=== PATIENT | male | born 1960 | race Caucasian/White ===

== ENCOUNTER 2017-10-20 10:52 | Emergency (ER) | payer BC ==
--- NOTE | 2017-10-20 12:18 | ER Document Report ---
ED Medical Screen (RME) - General Chief Complaint: General Weakness Stated Complaint: WEAKNESS Time Seen by Provider: 10/20/17 12:16 Notes: Patient states for 3 weeks he has had right hand weakness and numbness. He states is also had trouble articulating when he tries to speak. He denies any other type of weakness numbness or changes. No pain. No significant past medical history. TRAVEL OUTSIDE OF THE [place] IN LAST 30 DAYS: No - Related Data Allergies/Adverse Reactions: No Known Allergies Allergy (Verified 10/20/17 12:03) Past Medical History - Social History Chew tobacco use (# tins/day): No Frequency of alcohol use: Occasional Drug Abuse: None - Past Medical History Cardiac Medical History: Reports: Hx Hypertension Denies: Hx Coronary Artery Disease, Hx Heart Attack Pulmonary Medical History: Denies: Hx Asthma, Hx Bronchitis, Hx COPD, Hx Pneumonia Neurological Medical History: Denies: Hx Cerebrovascular Accident, Hx Seizures Renal/ Medical History: Denies: Hx Peritoneal Dialysis Musculoskeltal Medical History: Denies Hx Arthritis - Immunizations Hx Diphtheria, Pertussis, Tetanus Vaccination: Yes Physical Exam - Vital signs Vitals: Temp Pulse Resp BP Pulse Ox 98.2 F 57 L 18 182/82 H 96 10/20/17 11:00 10/20/17 11:00 10/20/17 11:00 10/20/17 11:00 10/20/17 11:00 Course - Vital Signs Vital signs: Temp Pulse Resp BP Pulse Ox 98.2 F 57 L 18 182/82 H 96 10/20/17 11:00 10/20/17 11:00 10/20/17 11:00 10/20/17 11:00 10/20/17 11:00
[2017-10-20 12:53] LABS: ABSOLUTE EOSINOPHILS # (AUTO) 0.1 10^3/uL (0.0-0.6); ABSOLUTE LYMPHOCYTES (AUTO) 1.1 10^3/uL (0.5-4.7); ABSOLUTE MONOCYTES (AUTO) 0.8 10^3/uL (0.1-1.4); ABSOLUTE NEUT (AUTO) 8.3 10^3/uL (1.7-8.2); BASOPHILS % (AUTO) 0.2 % (0-2); EOSINOPHILS % (AUTO) 1.3 % (0-6); HEMATOCRIT 49.4 % (37.9-51.0); HEMOGLOBIN 16.8 g/dL (13.5-17.0); LYMPHOCYTES % (AUTO) 10.5 % (13-45); MEAN CORPUSCULAR HEMOGLOBIN 31.6 pg (27.0-33.4); MEAN CORPUSCULAR VOLUME 93 fl (80-97); MONOCYTES % (AUTO) 7.7 % (3-13); PLATELET COUNT 211 10^3/uL (150-450); RED BLOOD COUNT 5.31 10^6/uL (4.35-5.55); RED CELL DISTRIBUTION WIDTH 13.7 % (11.5-14.0); SEGMENTED NEUTROPHILS % (AUTO) 80.3 % (42-78); TOTAL CELLS COUNTED % (AUTO) 100 %; WHITE BLOOD COUNT 10.4 10^3/uL (4.0-10.5)
[2017-10-20 12:57] LABS: APPEARANCE,URINE CLEAR; BILIRUBIN,URINE NEGATIVE (NEGATIVE); COLOR,URINE YELLOW; GLUCOSE, URINE NEGATIVE (NEGATIVE); KETONES,URINE NEGATIVE (NEGATIVE); LEUKOCYTE ESTERASE,URINE TRACE (NEGATIVE); NITRITE,URINE NEGATIVE (NEGATIVE); PROTEIN,URINE 30 mg/dL (NEGATIVE); URINE SPECIFIC GRAVITY 1.009; UROBILINOGEN,URINE NEGATIVE mg/dL (<2.0)
--- NOTE | 2017-10-20 13:05 | RADIOLOGY REPORT (SQ) ---
EXAM DESCRIPTION: CT HEAD WITHOUT COMPLETED DATE/TIME: 10/20/2017 12:44 pm REASON FOR STUDY: right hand weakness COMPARISON: None. TECHNIQUE: Axial images acquired through the brain without intravenous contrast. Images reviewed wi th bone, brain and subdural windows. Images stored on PACS. All CT scanners at this facility use dose modulation, iterative reconstruction, and/or weight based d osing when appropriate to reduce radiation dose to as low as reasonably achievable (ALARA). [facility]: Dose Right [facility]: CareDose [facility]: Dose Right [facility]: Teradose 4D [facility]: Smart [employer] RADIATION DOSE: CT Rad equipment meets quality standard of care and radiation dose reduction techniq ues were employed. CTDIvol: 64.6 mGy. DLP: 1292 mGy-cm. mGy. LIMITATIONS: None. FINDINGS: VENTRICLES: Normal size and contour. CEREBRUM: No masses. No hemorrhage. No midline shift. There is an ovoid area of relative decreased density in the basal ganglia on the left extending superiorly into the left periventricular white ma tter which could represent an area of recent infarction. There is a relative low density area in the left parietal region over the convexity which could also represent an area of recent infarction. Th ere are relative low density areas in the left posterior temporal lobe which could also represent are as of recent infarction. Clinical correlation is recommended. If further workup is deemed clinicall y warranted I would recommend MRI CEREBELLUM: No masses. No hemorrhage. No alteration of density. No evidence for acute infarction. EXTRAAXIAL SPACES: No fluid collections. No masses. ORBITS AND GLOBE: No intra- or extraconal masses. Normal contour of globe without masses. CALVARIUM: No fracture. PARANASAL SINUSES: Mucosal thickening is identified in the maxillary antra and a couple of the ethmoi aric sinuses SOFT TISSUES: No mass or hematoma. OTHER: No other significant finding. IMPRESSION: Multiple areas of relative decreased density involving the basal ganglia and periventric ular white matter on the left, the left parietal lobe, in the left temporal lobe as noted above which could represent areas of recent infarction. Clinical correlation is recommended. If further workup is deemed clinically warranted I would recommend MRI. Other findings as noted above. EVIDENCE OF ACUTE STROKE: NO. COMMENT: Quality ID # [id number]: Final reports with documentation of one or more dose reduction techniques (e.g., Automated exposure control, adjustment of the mA and/or kV according to patient size, use of iterative reconstruction technique) TECHNICAL DOCUMENTATION: JOB ID: [id number] [employer]- All Rights Reserved Reading location - IP/workstation name: [email or web address]
[2017-10-20 13:08] LABS: ALANINE AMINOTRANSFERASE 68 U/L (21-72); ALBUMIN 4.3 g/dL (3.5-5.0); ALKALINE PHOSPHATASE 110 U/L (38-126); ANION GAP 9 (5-19); ASPARTATE AMINO TRANSFERASE 53 U/L (17-59); BILIRUBIN,DIRECT 0.3 mg/dL (0.0-0.4); BLOOD UREA NITROGEN 7 mg/dL (7-20); CALCIUM 9.7 mg/dL (8.4-10.2); CARBON DIOXIDE 29 mmol/L (22-30); CHLORIDE 100 mmol/L (98-107); GLUCOSE 81 mg/dL (75-110); POTASSIUM 4.3 mmol/L (3.6-5.0); SODIUM 138.3 mmol/L (137-145); TOTAL PROTEIN 6.8 g/dL (6.3-8.2)
[2017-10-20 13:11] LABS: ALCOHOL < 10 mg/dL (NONE DETECTED)
[2017-10-20 13:12] LABS: URINE AMPHETAMINES SCREEN NEGATIVE; URINE BARBITURATES SCREEN NEGATIVE; URINE BENZODIAZEPINES SCREEN NEGATIVE; URINE COCAINE SCREEN NEGATIVE; URINE MARIJUANA (THC) SCREEN UNCONFIRMED POSITIVE; URINE METHADONE SCREEN NEGATIVE; URINE PHENCYCLIDINE SCREEN NEGATIVE
--- NOTE | 2017-10-20 16:23 | ER Document Report ---
ED General - General Chief Complaint: General Weakness Stated Complaint: WEAKNESS Time Seen by Provider: 10/20/17 12:16 TRAVEL OUTSIDE OF THE [place] IN LAST 30 DAYS: No - HPI Notes: Patient is a 57-year-old male with a history of hypertension who presents to the ED complaining of right hand tingling and occasional headache 3 weeks. Patient states that on rare occasions he will have issues articulating his words. Patient states that he would like evaluation for a stroke. He is otherwise been eating and drinking without any difficulties. He is urinating normally and having normal bowel movements. Patient states that he did notice some right hand weakness once, but that has since resolved. Patient does admit to smoking but denies IV drug use. He denies any drug allergies. Patient has not had any other recent illness. Denies any current headache, fever, head injury, neck pain, changes in vision/mentation/hearing, URI, sore throat, chest pain, palpitations, syncope, cough, shortness of breath, wheeze, dyspnea, abdominal pain, nausea/vomiting/diarrhea, urinary retention, dysuria, hematuria , loss of control of bowel or bladder, saddle anesthesia, muscle paralysis, or rash. [facility] - Related Data Allergies/Adverse Reactions: No Known Allergies Allergy (Verified 10/20/17 12:03) Past Medical History - Social History Smoking Status: Current Every Day Smoker Chew tobacco use (# tins/day): No Frequency of alcohol use: Occasional Drug Abuse: None Family History: Reviewed & Not Pertinent Patient has suicidal ideation: No Patient has homicidal ideation: No - Past Medical History Cardiac Medical History: Reports: Hx Hypertension Denies: Hx Coronary Artery Disease, Hx Heart Attack Pulmonary Medical History: Denies: Hx Asthma, Hx Bronchitis, Hx COPD, Hx Pneumonia Neurological Medical History: Denies: Hx Cerebrovascular Accident, Hx Seizures Renal/ Medical History: Denies: Hx Peritoneal Dialysis Musculoskeltal Medical History: Denies Hx Arthritis - Immunizations Hx Diphtheria, Pertussis, Tetanus Vaccination: Yes Review of Systems - Review of Systems -: Yes All other systems reviewed and negative Physical Exam - Vital signs Vitals: Temp Pulse Resp BP Pulse Ox 98.2 F 57 L 18 182/82 H 96 10/20/17 11:00 10/20/17 11:00 10/20/17 11:00 10/20/17 11:00 10/20/17 11:00 - Notes Notes: PHYSICAL EXAMINATION: GENERAL: Well-appearing, well-nourished and in no acute distress. A&Ox4. Answers questions appropriately. HEAD: Atraumatic, normocephalic. Non-tender. No lee sign EYES: Pupils equal round and reactive to light, extraocular movements intact, sclera anicteric, conjunctiva are normal. No raccoon eyes/entrapment ENT: EAC clear b/l. TM's intact b/l without erythema, fluid, or perforation. Nares patent and without discharge. oropharynx clear without exudates. No tonsilar hypertrophy or erythema. Moist mucous membranes. No sinus tenderness. No hemotympanum/CSF discharge. NECK: Normal range of motion, supple without lymphadenopathy. No rigidity. No midline tenderness. Spurling negative. LUNGS: Breath sounds clear to auscultation bilaterally and equal. No wheezes rales or rhonchi. HEART: Regular rate and rhythm without murmurs, rubs, gallops. ABDOMEN: Soft, nontender, nondistended abdomen. No guarding, no rebound. No masses appreciated. Normal bowel sounds present. No CVA tenderness bilaterally. Musculoskeletal: Ext b/l: FROM to passive/active. Strength 5+/5. No deficits noted. No bony tenderness of extremities. Back: FROM to passive/active. Strength 5+/5. No vertebral point tenderness, stepoffs, or deformities. No other bony tenderness or ecchymosis. SLR negative b/l. Extremities: No cyanosis, clubbing, or edema b/l. Peripheral pulses 2+. Capillary refill less than 2 seconds. NEUROLOGICAL: NIH 0. GCS 15. MMSE intact. Cranial nerves grossly intact. Normal speech, normal gait. Normal sensory, motor exams. Reflexes 2+ b/l. MEREDITH' s negative. Pronator drift negative. Heel/león, finger/nose wnl. Walking on heels/toes and heel to toe wnl. PSYCH: Normal mood, normal affect. SKIN: Warm, Dry, normal turgor, no rashes or lesions noted. Course - Re-evaluation Re-evalutation: 10/20/17 16:24 Patient is an afebrile, well-hydrated, 57-year-old male who presents to the ED with tingling in his posterior right hand unspecified and abnormal CT findings questionable for acute CVA. Vitals are acceptable. PE is otherwise unremarkable for any focal neurological deficits. NIH 0, GCS 15, MMSE intact, cranial nerves grossly intact. There is no physical exam finding to correlate with an acute infarct at this time. Radiologist did recommend an MRI be performed for further evaluation and management. I did review case with Dr. El and the patient. The patient would like to have the MRI performed through his PCM so he can get out of the ED. Dr. El and myself are okay with this decision based on his unremarkable PE today. Pt has [employer] and his PCM is in [place]. Pt aware of the risks/benefits of not having the MRI performed and he agrees that he will call tomorrow to schedule an appointment with his PCM. Low suspicion for any acute glaucoma, temporal arteritis, meningitis, intracranial hemorrhage, acute ischemic stroke, or fracture at this time. Patient is aware that his condition can change from initial presentation and that he needs to monitor symptoms closely for any acute changes. Recommend conservative measures for symptoms with close monitoring of his blood pressure. Recheck with your PCM this week if able. Return to the ED with any worsening/ concerning symptoms otherwise as reviewed discharge. Patient is in agreement. - Vital Signs Vital signs: Temp Pulse Resp BP Pulse Ox 98.2 F 57 L 18 182/82 H 96 10/20/17 11:00 10/20/17 11:00 10/20/17 11:00 10/20/17 11:00 10/20/17 11:00 - Laboratory Result Diagrams: 10/20/17 12:20 10/20/17 12:20 Laboratory results interpreted by me: 10/20/17 10/20/17 12:20 12:20 Seg Neutrophils % 80.3 H Lymphocytes % 10.5 L Absolute Neutrophils 8.3 H Urine Protein 30 H Ur Leukocyte Esterase TRACE H Discharge - Discharge Clinical Impression: Abnormal CT scan of head Hand tingling Qualifiers: Laterality: right Qualified Code(s): R20.2 - Paresthesia of skin Condition: Stable Disposition: HOME, SELF-CARE Additional Instructions: Maintain adequate fluid and food intake Take home medications as directed Low sodium/fat diet Monitor blood pressure daily and keep a log Monitor symptoms for any acute changes Recheck with your PCM in 3-5 days You will need an MRI for further evaluation and management (your CT results were given to you) At this time you do not appear to be having an acute stroke and you will need strict follow up with your PCM with return if worsening symptoms Return to the ED with any worsening symptoms and/or development of fever, headache, changes in behavior/mentation/speech/vision/hearing, chest pain, palpitations, syncope, shortness of breath, trouble breathing, abdominal pain, n /v/d, blood in stool/urine, loss of control of bowel/bladder, urinary retention , muscle weakness/paralysis, numbness/tingling, or other worsening symptoms that are concerning to you. Forms: Elevated Blood Pressure, Smoking Cessation Education Referrals: Bob Primary Care Provider [Other] - Follow up in 3-5 days
[2017-10-20 17:30] VITALS: BP 174/94
== END 2017-10-20 17:25 | disposition home or self-care (01) ==
LOC: ER 10:52
DX: R20.2 Paresthesia of skin (principal); R93.0 Abnormal findings on diagnostic imaging of skull and head, not elsewhere classified; R51 Headache; R29.818 Other symptoms and signs involving the nervous system; I10 Essential (primary) hypertension; F17.200 Nicotine dependence, unspecified, uncomplicated
CPT/HCPCS: 36415; 70450; 80053; 80307; 81001; 85025; 99285

== ENCOUNTER 2017-10-21 20:19 | Emergency (ER) | payer BC ==
--- NOTE | 2017-10-21 20:33 | ER Document Report ---
ED Medical Screen (RME) - General Chief Complaint: S/S of Possible Stroke Stated Complaint: RT SIDE WEAKNESS Time Seen by Provider: 10/21/17 20:31 Mode of Arrival: Wheelchair Information source: Patient, Relative, [facility] Records Notes: 57-year-old male who was seen here yesterday with questionable CVA which was to leave presents with complaints of sudden right-sided deficits. Patient notes right arm weakness I have greeted and performed a rapid initial assessment of this patient. A comprehensive ED assessment and evaluation of the patient, analysis of test results and completion of the medical decision making process will be conducted by additional ED providers. PHYSICAL EXAMINATION: GENERAL: Well-appearing, well-nourished and in no acute distress. HEAD: Atraumatic, normocephalic. EYES: Pupils equal round extraocular movements intact, conjunctiva are normal. ENT: Nares patent NECK: Normal range of motion LUNGS: No respiratory distress Musculoskeletal: Hesitancy with range of motion of the right upper extremity NEUROLOGICAL: Right arm weakness PSYCH: Normal mood, normal affect. SKIN: Warm, Dry, normal turgor, no rashes or lesions noted. TRAVEL OUTSIDE OF THE [place] IN LAST 30 DAYS: No - Related Data Allergies/Adverse Reactions: No Known Allergies Allergy (Verified 10/20/17 12:03) Past Medical History - Past Medical History Cardiac Medical History: Reports: Hx Hypertension Denies: Hx Coronary Artery Disease, Hx Heart Attack Pulmonary Medical History: Denies: Hx Asthma, Hx Bronchitis, Hx COPD, Hx Pneumonia Neurological Medical History: Denies: Hx Cerebrovascular Accident, Hx Seizures Renal/ Medical History: Denies: Hx Peritoneal Dialysis Musculoskeltal Medical History: Denies Hx Arthritis - Immunizations Hx Diphtheria, Pertussis, Tetanus Vaccination: Yes
[2017-10-21 21:02] LABS: ABSOLUTE BASOPHILS # (AUTO) 0.1 10^3/uL (0.0-0.2); ABSOLUTE EOSINOPHILS # (AUTO) 0.2 10^3/uL (0.0-0.6); ABSOLUTE LYMPHOCYTES (AUTO) 1.8 10^3/uL (0.5-4.7); ABSOLUTE MONOCYTES (AUTO) 1.2 10^3/uL (0.1-1.4); ABSOLUTE NEUT (AUTO) 6.4 10^3/uL (1.7-8.2); BASOPHILS % (AUTO) 0.6 % (0-2); HEMATOCRIT 48.7 % (37.9-51.0); HEMOGLOBIN 16.3 g/dL (13.5-17.0); LYMPHOCYTES % (AUTO) 18.7 % (13-45); MEAN CORPUSCULAR HEMOGLOBIN 31.5 pg (27.0-33.4); MEAN CORPUSCULAR HGB CONC 33.5 g/dL (32.0-36.0); MEAN CORPUSCULAR VOLUME 94 fl (80-97); PLATELET COUNT 189 10^3/uL (150-450); RED BLOOD COUNT 5.18 10^6/uL (4.35-5.55); RED CELL DISTRIBUTION WIDTH 13.6 % (11.5-14.0); SEGMENTED NEUTROPHILS % (AUTO) 66.7 % (42-78); TOTAL CELLS COUNTED % (AUTO) 100 %; WHITE BLOOD COUNT 9.7 10^3/uL (4.0-10.5)
--- NOTE | 2017-10-21 21:03 | ER Document Report ---
ED Neuro Symptoms/Deficit - General Mode of Arrival: Wheelchair Information source: Patient, Parent TRAVEL OUTSIDE OF THE [place] IN LAST 30 DAYS: No <FAUSTO SAUCEDO - Last Filed: 10/22/17 03:03> <CAROL GRACIA - Last Filed: 10/22/17 03:53> - General Chief Complaint: S/S of Possible Stroke Stated Complaint: RT SIDE WEAKNESS Time Seen by Provider: 10/21/17 20:31 Notes: Patient is a 57-year-old male who presents to the emergency department today with complaints of a right-sided facial droop, difficulty with word finding, and right upper extremity weakness. Patient was seen here yesterday for right upper extremity "tingling" and was told an MRI would be advised and the patient elected to have this done outpatient. Patient's brother at bedside states he has not talked to the patient for a few days so he called him today and asked him how he felt and the patient told him he was seen at the hospital yesterday. He went on to say that the patient stated that today he was not feeling well and that he could not "smile right". Brother states that the patient's head seems "cloudy" and he is having difficulty with word finding. Patient denies any usage of blood thinners. (FAUSTO SAUCEDO) - Related Data Allergies/Adverse Reactions: No Known Allergies Allergy (Verified 10/21/17 20:42) Past Medical History - General Information source: Patient, Relative, COUNTS INCLUDE [facility] BEDS AT [facility] Records - Social History Smoking Status: Never Smoker Cigarette use (# per day): No Frequency of alcohol use: None Drug Abuse: None Lives with: Family Family History: Reviewed & Not Pertinent - Past Medical History Cardiac Medical History: Reports: Hx Hypertension Surgical Hx: Negative - Immunizations Hx Diphtheria, Pertussis, Tetanus Vaccination: Yes <FAUSTO SAUCEDO - Last Filed: 10/22/17 03:03> Review of Systems - Review of Systems Constitutional: No symptoms reported EENT: No symptoms reported Cardiovascular: No symptoms reported Respiratory: No symptoms reported Gastrointestinal: No symptoms reported Genitourinary: No symptoms reported Male Genitourinary: No symptoms reported Musculoskeletal: See HPI, Other - RUE weakness Skin: No symptoms reported Hematologic/Lymphatic: No symptoms reported Neurological/Psychological: See HPI, Other - right sided facial droop, difficulty with word finding -: Yes All other systems reviewed and negative <FAUSTO SAUCEDO - Last Filed: 10/22/17 03:03> Physical Exam - Vital signs Interpretation: Hypertensive - General General appearance: Alert - HEENT Head: Normocephalic, Atraumatic Cornea: Normal Extraocular movements intact: Yes Mouth/Lips: Normal Mucous membranes: Normal - Respiratory Respiratory status: No respiratory distress Chest status: Nontender Breath sounds: Normal Chest palpation: Normal - Cardiovascular Rhythm: Regular Heart sounds: Normal auscultation Murmur: No - Abdominal Inspection: Normal Bowel sounds: Normal Tenderness: Nontender - Back Back: Normal - Extremities General upper extremity: Normal inspection, Nontender General lower extremity: Normal inspection, Nontender Hand: Other - decreased technical editor R hand, cannot hold pen - Neurological Neuro grossly intact: No Cognition: Confused Orientation: Disoriented to events Kassi Coma Scale Eye Opening: Spontaneous Kassi Coma Scale Verbal: Confused Kassi Coma Scale Motor: Obeys Commands [place] Coma Scale Total: 14 Speech: Expressive aphasia Cranial nerves: Facial palsy - R facial droop Motor strength normal: LUE, LLE, RLE. No: RUE Additional motor exam normals: No: Equal technical editor - Psychological Associated symptoms: Normal affect, Normal mood <CAROL GRACIA - Last Filed: 10/22/17 03:53> - Vital signs Vitals: Resp Pulse Ox 16 97 10/21/17 20:46 10/21/17 20:46 Course - Laboratory Result Diagrams: 10/21/17 20:43 10/21/17 20:43 <FAUSTO SAUCEDO - Last Filed: 10/22/17 03:03> - Laboratory Result Diagrams: 10/21/17 20:43 10/21/17 20:43 - Diagnostic Test Radiology reviewed: Image reviewed, Reports reviewed <CAROL GRACIA - Last Filed: 10/22/17 03:53> - Re-evaluation Re-evalutation: 10/21/17 00:06 Called [facility], luis beds. 10/21/17 00:07 Called Rajeev Boateng, will have hospitalist call back. 10/21/17 00:25 Called Elana Plata, luis neuro. (FAUSTO SAUCEDO) 10/22/17 01:15 Patient was discussed with the hospitalist service at [facility]. He has been accepted for transfer. Patient is a 57-year-old male who presents with right facial droop and right technical editor strength decreased. The patient was seen yesterday and there is concern for abnormality on CT but patient wanted to go home and see his own doctor. Patient presents today with confusion, and symptoms consistent with left MCA stroke. MRI confirms this. Patient has had resolution of his right facial droop. His technical editor strength is improved. Discussed with hospitalist service here in concern because of no neurology. Patient also with over 80% stenosis of his carotid artery on the left. Patient was discussed with the hospitalist service at [facility]. He will be transferred there for further evaluation and admitted to the stroke center. There is currently on bed delay. Patient has passed a swallow evaluation. He will be continued on his home medications. He will be started on simvastatin and aspirin. Patient no longer has a right facial droop. Manager Income Tax strength is returning and right hands. Patient has had waxing and waning symptoms. 10/22/17 03:53 Still awaiting bed at [facility]. Stable at this time. (CAROL GRACIA ) - Vital Signs Vital signs: Temp Pulse Resp BP Pulse Ox 98.3 F 54 L 16 135/109 H 96 10/22/17 00:00 10/22/17 00:00 10/22/17 02:01 10/22/17 02:02 10/22/17 02:02 - Laboratory Laboratory results interpreted by me: 10/21/17 20:43 Sodium 136.3 L Direct Bilirubin 0.5 H Creatine Kinase 50 L Critical Care Note - Critical Care Note Total time excluding time spent on procedures (mins): 90 - Evaluation of patient with acute neurologic deficit, coordination of CT, coordination of MRI, multiple re-evaluations, discussion with family, coordination of transfer, counseling of patient <CAORL GRACIA - Last Filed: 10/22/17 03:53> Discharge <FAUSTO SAUCEDO - Last Filed: 10/22/17 03:03> <CAROL GRACIA - Last Filed: 10/22/17 03:53> - Discharge Clinical Impression: Carotid stenosis, left CVA (cerebral vascular accident) Qualifiers: CVA mechanism: unspecified Qualified Code(s): I63.9 - Cerebral infarction, unspecified Condition: Stable Disposition: [facility] Scribe Attestation: 10/22/17 03:53 I personally performed the services described in the documentation, reviewed and edited the documentation which was dictated to the scribe in my presence, and it accurately records my words and actions. (CAROL GRACIA) Scribe Documentation - Scribe Written by Scribe:: Jayce Mills, 10/22/2017 0032 acting as scribe for :: Mary <FAUSTO SAUCEDO - Last Filed: 10/22/17 03:03>
[2017-10-21 21:08] LABS: INTERNATIONAL RATION (INR) 0.87; PARTIAL THROMBOPLASTIN TIME 28.6 SEC (23.5-35.8); PROTHROMBIN TIME 12.4 SEC (11.4-15.4)
--- NOTE | 2017-10-21 21:10 | RADIOLOGY REPORT (SQ) ---
EXAM DESCRIPTION: CT HEAD WITHOUT COMPLETED DATE/TIME: 10/21/2017 8:53 pm REASON FOR STUDY: unilateral weakness COMPARISON: 10/20/2017 TECHNIQUE: Axial images acquired through the brain without intravenous contrast. Images reviewed wi th bone, brain and subdural windows. Images stored on PACS. All CT scanners at this facility use dose modulation, iterative reconstruction, and/or weight based d osing when appropriate to reduce radiation dose to as low as reasonably achievable (ALARA). [facility]: Dose Right [facility]: CareDose [facility]: Dose Right [facility]: Teradose 4D [facility]: [employer] RADIATION DOSE: mGy. LIMITATIONS: None. FINDINGS: VENTRICLES: Normal size and contour. CEREBRUM: There is decreased attenuation in the left posterior parietal lobe extending to the cortex. There was also an area of decreased attenuation in the basal ganglia on the left that extends upwar d and laterally involves cortex in the posterior left frontal lobe. Normal strauss/ white differentiatio n otherwise. There is no hemorrhage. CEREBELLUM: No masses. No hemorrhage. No alteration of density. No evidence for acute infarction. EXTRAAXIAL SPACES: No fluid collections. No masses. ORBITS AND GLOBE: No intra- or extraconal masses. Normal contour of globe without masses. CALVARIUM: No fracture. PARANASAL SINUSES: There is a mucous retention cyst in the right maxillary sinus. There is mucoperio steal thickening in the left maxillary sinus. SOFT TISSUES: No mass or hematoma. OTHER: No other significant finding. IMPRESSION: 1. There are what appear to be 2 old infarcts on the left as described. 2. Maxillary sinus disease. EVIDENCE OF ACUTE STROKE: No acute stroke. Both of the areas described above appear to be old. COMMENT: Findings were discussed with the ordering physician at 2105 hours on this date. Quality ID # [id number]: Final reports with documentation of one or more dose reduction techniques (e.g., Au tomated exposure control, adjustment of the mA and/or kV according to patient size, use of iterative reconstruction technique) TECHNICAL DOCUMENTATION: JOB ID: [id number] [employer]- All Rights Reserved Reading location - IP/workstation name: [email or web address]
--- NOTE | 2017-10-21 21:14 | RADIOLOGY REPORT (SQ) ---
EXAM DESCRIPTION: CHEST SINGLE VIEW COMPLETED DATE/TIME: 10/21/2017 8:57 pm REASON FOR STUDY: unilateral weakness COMPARISON: None. EXAM PARAMETERS: NUMBER OF VIEWS: One view. TECHNIQUE: Single frontal radiographic view of the chest acquired. RADIATION DOSE: NA LIMITATIONS: None. FINDINGS: LUNGS AND PLEURA: No opacities, masses or pneumothorax. No pleural effusion. MEDIASTINUM AND HILAR STRUCTURES: No masses. Contour normal. HEART AND VASCULAR STRUCTURES: Heart normal in size. Normal vasculature. BONES: No acute findings. HARDWARE: None in the chest. OTHER: No other significant finding. IMPRESSION: NO ACUTE RADIOGRAPHIC FINDING IN THE CHEST. TECHNICAL DOCUMENTATION: JOB ID: [id number] [employer]- All Rights Reserved Reading location - IP/workstation name: [email or web address]
[2017-10-21 21:29] LABS: ALANINE AMINOTRANSFERASE 64 U/L (21-72); ALBUMIN 4.2 g/dL (3.5-5.0); ALKALINE PHOSPHATASE 90 U/L (38-126); ANION GAP 12 (5-19); ASPARTATE AMINO TRANSFERASE 52 U/L (17-59); BILIRUBIN,DIRECT 0.5 mg/dL (0.0-0.4); BILIRUBIN,TOTAL 0.7 mg/dL (0.2-1.3); BLOOD UREA NITROGEN 11 mg/dL (7-20); CALCIUM 9.5 mg/dL (8.4-10.2); CARBON DIOXIDE 22 mmol/L (22-30); CHLORIDE 102 mmol/L (98-107); CREATINE KINASE 50 U/L (55-170); GLUCOSE 82 mg/dL (75-110); POTASSIUM 4.1 mmol/L (3.6-5.0); SODIUM 136.3 mmol/L (137-145); TOTAL PROTEIN 6.9 g/dL (6.3-8.2)
[2017-10-21 21:42] LABS: CREATINE KINASE MB 0.69 ng/mL (<4.55)
[2017-10-21 21:43] LABS: TROPONIN I < 0.012 ng/mL
--- NOTE | 2017-10-21 23:08 | RADIOLOGY REPORT (SQ) ---
EXAM DESCRIPTION: MRI HEAD COMBO CLINICAL HISTORY: 57 years Male, acute cva COMPARISON: CT, head, report only. TECHNIQUE: Conventional pre-and post 15 mL MultiHance IV contrast MRI of the brain. Conventional MRA of the brain. FINDINGS: MRI, brain: Moderate subacute and small acute cortical ischemia pattern of the posterior left frontal lobe and the posterior left parieto-occipital lobe, predominantly in the left MCA distribution. Areas of encephalomalacia in the left basal ganglia including the external capsule and left putamen consistent with old infarct. Moderate bilateral maxillary mucosal thickening. MRA, brain: Diminutive A1 segment of the left anterior cerebral artery. Diminutive P1 segment of the left posterior cerebral artery. Absent or occluded P1 segment of the right posterior cerebral artery. Severe, greater than 80% diameter stenosis of the left internal carotid artery, extending from the cavernous portion to the carotid siphon and proximal cerebral portion. 60% diameter stenosis of the petrous part of the left internal carotid artery. IMPRESSION: 1. Mixed age predominant subacute ischemia pattern of the left frontal lobe and left parietal lobe, left MCA and adjacent watershed distribution. There are small areas of acute cortical ischemia of both areas demonstrate diffusion imaging. 2. Several defects of the [place] include severe stenosis of the left internal carotid artery, cavernous portion.
--- NOTE | 2017-10-21 23:38 | RADIOLOGY REPORT (SQ) ---
EXAM DESCRIPTION: MRA HEAD WITHOUT CLINICAL HISTORY: 57 years, Male, R weakness, confusion, recent CVA COMPARISON: CT, head, report only. TECHNIQUE: Conventional pre-and post 15 mL MultiHance IV contrast MRI of the brain. Conventional MRA of the brain. FINDINGS: MRI, brain: Moderate subacute and small acute cortical ischemia pattern of the posterior left frontal lobe and the posterior left parieto-occipital lobe, predominantly in the left MCA distribution. Areas of encephalomalacia in the left basal ganglia including the external capsule and left putamen consistent with old infarct. Moderate bilateral maxillary mucosal thickening. MRA, brain: Diminutive A1 segment of the left anterior cerebral artery. Diminutive P1 segment of the left posterior cerebral artery. Absent or occluded P1 segment of the right posterior cerebral artery. Severe, greater than 80% diameter stenosis of the left internal carotid artery, extending from the cavernous portion to the carotid siphon and proximal cerebral portion. 60% diameter stenosis of the petrous part of the left internal carotid artery. IMPRESSION: 1. Mixed age predominant subacute ischemia pattern of the left frontal lobe and left parietal lobe, left MCA and adjacent watershed distribution. There are small areas of acute cortical ischemia of both areas demonstrate diffusion imaging. 2. Several defects of the [place] include severe stenosis of the left internal carotid artery, cavernous portion. Critical results reporting: The results of the examination have been personally discussed with the referring health care provider, CAROL GRACIA, immediately following interpretation of the examination on 10/21/2017 10:20 PM CDT.
[2017-10-22] MEDS ORDERED: LISINOPRIL 10 MG TABLET PO SCH ×2 (03:45→10:00)
[2017-10-22] MEDS ORDERED: SIMVASTATIN 40 MG TABLET PO SCH ×2 (04:00→10:00)
--- NOTE | 2017-10-22 08:17 | EKG REPORT ---
SEVERITY:- ABNORMAL ECG - SINUS RHYTHM PROBABLE INFERIOR INFARCT, OLD MINIMAL ST ELEVATION, ANTERIOR LEADS BORDERLINE PROLONGED QT INTERVAL : Confirmed by: Ramu Carbajal MD 22-Oct-2017 08:16:34
[2017-10-22] MEDS ORDERED: METOPROLOL TARTRATE 100 MG TABLET PO SCH (10:00)
[2017-10-22] MEDS ORDERED: ASPIRIN 81 MG TABLET, CHEWABLE PO SCH (10:00)
[2017-10-22 10:10] VITALS: BP 190/93
== END 2017-10-22 10:30 | disposition short-term general hospital (02) ==
LOC: ER 20:19
DX: I63.9 Cerebral infarction, unspecified (principal); R29.810 Facial weakness; R47.01 Aphasia; G83.21 Monoplegia of upper limb affecting right dominant side; I10 Essential (primary) hypertension; R41.0 Disorientation, unspecified; I65.22 Occlusion and stenosis of left carotid artery
CPT/HCPCS: 93005; 99291; 99292; 36415; 82553; 82962; 82550; 85025; 85610; 85730; 80053; 84484; 70553; 70544; 71045; 70450; 93010; A9577

== ENCOUNTER 2019-05-23 13:04 | Emergency (ER) | payer BC ==
[2019-05-23 13:31] LABS: ABSOLUTE BASOPHILS # (AUTO) 0.1 10^3/uL (0.0-0.2); ABSOLUTE LYMPHOCYTES (AUTO) 1.5 10^3/uL (0.5-4.7); ABSOLUTE MONOCYTES (AUTO) 0.6 10^3/uL (0.1-1.4); ABSOLUTE NEUT (AUTO) 5.6 10^3/uL (1.7-8.2); EOSINOPHILS % (AUTO) 0.6 % (0-6); HEMATOCRIT 44.6 % (37.9-51.0); HEMOGLOBIN 14.8 g/dL (13.5-17.0); LYMPHOCYTES % (AUTO) 19.2 % (13-45); MEAN CORPUSCULAR HEMOGLOBIN 32.1 pg (27.0-33.4); MEAN CORPUSCULAR HGB CONC 33.1 g/dL (32.0-36.0); MEAN CORPUSCULAR VOLUME 97 fl (80-97); MONOCYTES % (AUTO) 7.2 % (3-13); PLATELET COUNT 216 10^3/uL (150-450); RED BLOOD COUNT 4.61 10^6/uL (4.35-5.55); TOTAL CELLS COUNTED % (AUTO) 100 %; WHITE BLOOD COUNT 7.8 10^3/uL (4.0-10.5)
[2019-05-23 13:40] LABS: ALBUMIN 3.8 g/dL (3.5-5.0); ALKALINE PHOSPHATASE 192 U/L (38-126); ASPARTATE AMINO TRANSFERASE 282 U/L (17-59); BILIRUBIN,DIRECT 0.5 mg/dL (0.0-0.4); BILIRUBIN,TOTAL 0.8 mg/dL (0.2-1.3); BLOOD UREA NITROGEN 15 mg/dL (7-20); CALCIUM 9.3 mg/dL (8.4-10.2); GLUCOSE 85 mg/dL (75-110); POTASSIUM 3.9 mmol/L (3.6-5.0); TOTAL PROTEIN 7.1 g/dL (6.3-8.2)
[2019-05-23 13:45] LABS: ALCOHOL < 10 mg/dL (NONE DETECTED); CARBON DIOXIDE 16 mmol/L (22-30); CHLORIDE 99 mmol/L (98-107)
[2019-05-23 13:50] LABS: ANION GAP 21 (5-19)
[2019-05-23] MEDS ORDERED: NORMAL SALINE 1000 ML 1,000 ML IV ONE (13:58)
--- NOTE | 2019-05-23 15:10 | RADIOLOGY REPORT (SQ) ---
EXAM DESCRIPTION: CT HEAD WITHOUT COMPLETED DATE/TIME: 05/23/2019 2:58 pm REASON FOR STUDY: new onset seizures COMPARISON: 06/09/2018 TECHNIQUE: Axial images acquired through the brain without intravenous contrast. Images reviewed wi th bone, brain and subdural windows. Additional sagittal and coronal reconstructions were generated. Images stored on PACS. All CT scanners at this facility use dose modulation, iterative reconstruction, and/or weight based d osing when appropriate to reduce radiation dose to as low as reasonably achievable (ALARA). [facility]: Dose Right [facility]: CareDose [facility]: Dose Right [facility]: Teradose 4D [facility]: Smart RRsat RADIATION DOSE: CT Rad equipment meets quality standard of care and radiation dose reduction techniq ues were employed. CTDIvol: 53.2 mGy. DLP: 1044 mGy-cm. mGy. LIMITATIONS: None. FINDINGS: VENTRICLES: Prominent. CEREBRUM: Old left MCA territory infarct. No masses. No hemorrhage. No midline shift. Areas of lo w density in the white matter most likely due to chronic micro-vascular ischemic change. No evidence for acute infarction. CEREBELLUM: No masses. No hemorrhage. No alteration of density. No evidence for acute infarction. EXTRAAXIAL SPACES: Mild age-related involutional change. No fluid collections. No masses. ORBITS AND GLOBE: No intra- or extraconal masses. Normal contour of globe without masses. CALVARIUM: No fracture. OTHER: No other significant finding. IMPRESSION: Old left MCA territory infarct. No acute findings. EVIDENCE OF ACUTE STROKE: NO. TECHNICAL DOCUMENTATION: JOB ID: [id number] Quality ID # [id number]: Final reports with documentation of one or more dose reduction techniques (e.g., Au tomated exposure control, adjustment of the mA and/or kV according to patient size, use of iterative reconstruction technique) 2010 [employer]- All Rights Reserved Reading location - IP/workstation name: [email or web address]
[2019-05-23 15:32] LABS: APPEARANCE,URINE CLEAR; BILIRUBIN,URINE NEGATIVE (NEGATIVE); COLOR,URINE YELLOW; GLUCOSE, URINE NEGATIVE (NEGATIVE); KETONES,URINE NEGATIVE (NEGATIVE); LEUKOCYTE ESTERASE,URINE NEGATIVE (NEGATIVE); NITRITE,URINE NEGATIVE (NEGATIVE); PROTEIN,URINE 30 mg/dL (NEGATIVE); URINE SPECIFIC GRAVITY 1.014; UROBILINOGEN,URINE NEGATIVE mg/dL (<2.0)
--- NOTE | 2019-05-23 15:40 | EKG REPORT ---
SEVERITY:- ABNORMAL ECG - SINUS RHYTHM INFERIOR INFARCT, AGE INDETERMINATE LATERAL INFARCT, OLD CONSIDER ANTERIOR INFARCT PROLONGED QT INTERVAL : Confirmed by: Ramu Carbajal MD 23-May-2019 15:40:34
[2019-05-23 15:50] LABS: URINE AMPHETAMINES SCREEN NEGATIVE; URINE BARBITURATES SCREEN NEGATIVE; URINE BENZODIAZEPINES SCREEN NEGATIVE; URINE COCAINE SCREEN NEGATIVE; URINE MARIJUANA (THC) SCREEN UNCONFIRMED POSITIVE; URINE METHADONE SCREEN NEGATIVE; URINE PHENCYCLIDINE SCREEN NEGATIVE
[2019-05-23 16:07] VITALS: BP 174/102
[2019-05-23 16:34] LABS: ANION GAP 7 (5-19); BLOOD UREA NITROGEN 16 mg/dL (7-20); CALCIUM 8.3 mg/dL (8.4-10.2); CARBON DIOXIDE 25 mmol/L (22-30); CHLORIDE 101 mmol/L (98-107); GLUCOSE 117 mg/dL (75-110); POTASSIUM 3.3 mmol/L (3.6-5.0)
--- NOTE | 2019-05-23 16:38 | ER Document Report ---
ED General - General Chief Complaint: Probable Seizure Stated Complaint: POSSIBLE SEIZURE Time Seen by Provider: 05/23/19 13:55 Primary Care Provider: JOANNE HIGUERA ANP-C [Primary Care Provider] - Follow up as needed Notes: 59-year-old male presents emergency department via EMS after a 1 minute seizure witnessed by staff at [facility] in [place]. Patient did not have any focal deficits. Patient did have fecal incontinence. Patient reported to EMS that he has diabetes however currently denies having diabetes. Has no prior history of seizures, has no new medications, does not take Ultram or tramadol. Admits to drinking 3-4 alcoholic drinks most days but has stopped for several days in a row before and never had any seizures. Denies any recent head injury. Does not take any blood thinners. Denies any pain. TRAVEL OUTSIDE OF THE [place] IN LAST 30 DAYS: No - Related Data Allergies/Adverse Reactions: No Known Allergies Allergy (Verified 06/09/18 17:15) Past Medical History - General Information source: Patient - Social History Smoking Status: Current Every Day Smoker Chew tobacco use (# tins/day): No Frequency of alcohol use: Heavy Drug Abuse: None Family History: Reviewed & Not Pertinent Patient has suicidal ideation: No Patient has homicidal ideation: No - Past Medical History Cardiac Medical History: Reports: Hx Hypertension Denies: Hx Coronary Artery Disease, Hx Heart Attack Pulmonary Medical History: Denies: Hx Asthma, Hx Bronchitis, Hx COPD, Hx Pneumonia Neurological Medical History: Denies: Hx Cerebrovascular Accident, Hx Seizures Renal/ Medical History: Denies: Hx Peritoneal Dialysis Musculoskeletal Medical History: Denies Hx Arthritis Past Surgical History: Reports: Hx Appendectomy, Hx Orthopedic Surgery - L knee - Immunizations Hx Diphtheria, Pertussis, Tetanus Vaccination: Yes Review of Systems - Review of Systems Constitutional: No symptoms reported Gastrointestinal: See HPI, Fecal incontinence Neurological/Psychological: See HPI, Seizure -: Yes All other systems reviewed and negative Physical Exam - Vital signs Vitals: Resp Pulse Ox 17 94 05/23/19 13:08 05/23/19 13:08 Interpretation: Hypertensive - Notes Notes: GENERAL: Alert, interacts well. No acute distress. HEAD: Normocephalic, atraumatic EYES: Pupils equal, round and reactive to light, extraocular movements intact. ENT: Oral mucosa moist, tongue midline. NECK: Full range of motion, supple, trachea midline. LUNGS: Clear to auscultation bilaterally, no wheezes, rales or rhonchi, no respiratory distress. HEART: Regular rate and rhythm, no murmurs, gallops, rubs. ABDOMEN: Soft, nontender, nondistended, bowel sounds present in all 4 quadrants. Smells of stool, obvious fecal incontinence. No saddle anesthesia. EXTREMITIES: Moves all 4 extremities spontaneously, no edema, radial and dorsalis pedis pulses 2/4 bilaterally. No cyanosis. NEUROLOGICAL: Alert and oriented x3, normal speech, cranial nerves II through XII grossly intact, biceps and patellar DTRs 2+ bilaterally. Finger-nose and [id number] test intact. PSYCH: Normal mood, normal affect. SKIN: Warm, Dry, normal turgor, no rashes or lesions noted. Course - Re-evaluation Re-evalutation: 05/23/19 16:37 CBC unremarkable, CMP shows slight low sodium 135.7 but this would not cause his seizures, CO2 is low at 16, anion gap is elevated at 21, this may be related to dehydration and seizures, patient will be hydrated and this will be repeated, AST and alkaline phosphatase are both somewhat elevated, urinalysis shows protein and small blood but no ketones, positive urine drug screen for marijuana otherwise negative, serum alcohol is negative, CT scan of the head does not show any acute process although it does show an old left-sided stroke. Head CT 05/23/19 14:16 IMPRESSION: Old left MCA territory infarct. No acute findings. EVIDENCE OF ACUTE STROKE: NO. Patient is now fully awake and alert, feeling much better, able to eat and drink without any difficulty. Discussed with patient that he is not allowed to drive, so long as his anion gap normalizes he will be discharged to home, as to follow- up with neurology as an outpatient. No indication for starting antiepileptics at this time. I do not think this is coming from alcohol withdrawal as he is not tachycardic, he was only minimally hypertensive on arrival and he was not given any benzodiazepines to stop his seizure. Alcohol withdrawal seizures do not typically resolve on their own without any treatment. 05/23/19 16:41 Repeat metabolic shows again mild hyponatremia at 133.4, potassium is a little bit lower at 3.3, anion gap and CO2 have normalized. Patient will be discharged to home. - Vital Signs Vital signs: Temp Pulse Resp BP Pulse Ox 17 174/102 H 99 05/23/19 16:01 05/23/19 16:01 05/23/19 16:01 - Laboratory Result Diagrams: 05/23/19 13:12 05/23/19 16:05 Laboratory results interpreted by me: 05/23/19 05/23/19 05/23/19 13:12 15:15 16:05 Sodium 135.7 L 133.4 L Potassium 3.3 L Carbon Dioxide 16 L Anion Gap 21 H Glucose 117 H Calcium 8.3 L Direct Bilirubin 0.5 H AST 282 H Alkaline Phosphatase 192 H Urine Protein 30 H Urine Blood SMALL H - EKG Interpretation by Me Additional EKG results interpreted by me: 05/23/19 16:38 EKG shows sinus rhythm rate of 69, first-degree AV block, no ST segment elevations or depressions, there are T wave inversions noted in lead III which are new, otherwise EKG is relatively unchanged from prior per my interpretation. Discharge - Discharge Clinical Impression: New onset seizure without head trauma Condition: Stable Disposition: HOME, SELF-CARE Additional Instructions: Seizure You have had a seizure. Seizure disorders (epilepsy) of one sort or another affect about one out of 50 people. The seizure occurs because of abnormal electrical activity in the brain. Seizures may be due to drugs and alcohol, strokes, brain injury, or infection. In the most common form of epilepsy, no cause can be found. You will require further evaluation to determine the cause of your seizure, and to determine whether anti-seizure medication is required. This follow-up testing is important, so please call us if you encounter problems with scheduling of tests or appointments. YOU SHOULD NOT DRIVE until released to do so by your physician. The law requires that seizures be reported to the [place] [employer] driver's license bureau--a seizure while driving could be catastrophic. Call the doctor if seizures recur, or if you develop new symptoms such as fever, severe headache, stiff neck, confusion or increasing sleepiness, weakness or numbness, or visual problems. Referrals: JOANNE HIGUERA, ANP-C [Primary Care Provider] - Follow up as needed
== END 2019-05-23 16:53 | disposition home or self-care (01) ==
LOC: ER 13:04
DX: R56.9 Unspecified convulsions (principal); R15.9 Full incontinence of feces; E87.1 Hypo-osmolality and hyponatremia; R74.8 Abnormal levels of other serum enzymes; R74.0 Nonspecific elevation of levels of transaminase and lactic acid dehydrogenase [LDH]; R80.9 Proteinuria, unspecified; R31.9 Hematuria, unspecified; I44.0 Atrioventricular block, first degree; F17.200 Nicotine dependence, unspecified, uncomplicated; I10 Essential (primary) hypertension; Z86.73 Personal history of transient ischemic attack (TIA), and cerebral infarction without residual deficits
CPT/HCPCS: 93005; 36415; 82962; 80307 ×2; 83735; 85025; 80053; 81001; 70450; 93010; J7030; 96360; 99284

== ENCOUNTER 2019-07-07 16:51 | Emergency (ER) | payer BC ==
[2019-07-07] MEDS ORDERED: LEVETIRACETAM 500 MG/NACL-ISO 500 MG/100 ML RTUPB IV ONE (17:02)
--- NOTE | 2019-07-07 17:15 | ER Document Report ---
ED General - General Chief Complaint: Seizure Stated Complaint: POSSIBLE SEIZURE Primary Care Provider: ACE CHEN MD [COMMUNITY BASED STAFF] - Follow up as needed JENNIFER LUA MD [NO LOCAL MD] - Follow up as needed JOANNE HIGUERA ANP-C [NO LOCAL MD] - Follow up as needed TRAVEL OUTSIDE OF THE [place] IN LAST 30 DAYS: No - HPI Notes: Patient is a 59-year-old male with a history of left-sided CVA, hypertension, previous seizure who presents by EMS for seizure that occurred when he was talking to his friends at a bar. Patient states that he was not drinking at that time and has not had a drink in 2 weeks. Witnesses state that he was shaking, not really responding as they lowered him to the ground. When EMS arrived he was post ictal. He was seen here in May for seizure at that [facility], but has not followed up with anyone for it. He is able to eat and drink without difficulty. He did not have any incontinence. Patient was noted to have a tongue bite to the right side. Patient states that he is currently feeling well. He has no other concerns or complaints. Denies any headache, fever, head injury, neck pain, changes in vision/speech/hearing, URI, sore throat, chest pain, palpitations, syncope, cough, shortness of breath, wheeze, dyspnea, abdominal pain, nausea/vomiting/diarrhea, urinary retention, dysuria, hematuria, loss of control of bowel or bladder, numbness/tingling, saddle anesthesia, muscle paralysis, or rash. - Related Data Allergies/Adverse Reactions: No Known Allergies Allergy (Verified 06/09/18 17:15) Past Medical History - Social History Smoking Status: Current Every Day Smoker Family History: Reviewed & Not Pertinent Patient has suicidal ideation: No Patient has homicidal ideation: No - Past Medical History Cardiac Medical History: Reports: Hx Hypertension Denies: Hx Coronary Artery Disease, Hx Heart Attack Pulmonary Medical History: Denies: Hx Asthma, Hx Bronchitis, Hx COPD, Hx Pneumonia Neurological Medical History: Denies: Hx Cerebrovascular Accident, Hx Seizures Renal/ Medical History: Denies: Hx Peritoneal Dialysis Musculoskeletal Medical History: Denies Hx Arthritis Past Surgical History: Reports: Hx Appendectomy, Hx Orthopedic Surgery - L knee - Immunizations Hx Diphtheria, Pertussis, Tetanus Vaccination: Yes Review of Systems - Review of Systems -: Yes All other systems reviewed and negative Physical Exam - Vital signs Vitals: Temp Resp Pulse Ox 98.4 F 19 95 07/07/19 17:04 07/07/19 17:04 07/07/19 17:04 - Notes Notes: PHYSICAL EXAMINATION: accompanied by female nurse GENERAL: Well-appearing, well-nourished and in no acute distress. A&O to person place and time. Answers questions grossly appropriately. He did get a little confused at one time when asking where he was. Normal for this to happen since stroke per brother HEAD: Atraumatic, normocephalic. Non-tender. No lee sign EYES: Pupils equal round and reactive to light, extraocular movements intact, sclera anicteric, conjunctiva are normal. No raccoon eyes/entrapment ENT: EAC clear b/l. TM's intact b/l without erythema, fluid, or perforation. Nares patent and without discharge. oropharynx clear without exudates. No tonsilar hypertrophy or erythema. Moist mucous membranes. No sinus tenderness. No hemotympanum/CSF discharge. Mouth: + tongue bite, rt side. NECK: Normal range of motion, supple without lymphadenopathy. No rigidity. No midline tenderness. LUNGS: Breath sounds clear to auscultation bilaterally and equal. No wheezes rales or rhonchi. HEART: Regular rate and rhythm without murmurs, rubs, gallops. ABDOMEN: Soft, nontender, nondistended abdomen. No guarding, no rebound. Normal bowel sounds present. No CVA tenderness bilaterally. Musculoskeletal: Ext b/l: FROM to passive/active. Strength 5+/5. No deficits noted. No bony tenderness of extremities. Back: FROM to passive/active. Strength 5+/5. No vertebral point tenderness, stepoffs, or deformities. No other bony tenderness or ecchymosis. SLR negative b/l. Extremities: No cyanosis, clubbing, or edema b/l. Peripheral pulses 2+. Capillary refill less than 2 seconds. NEUROLOGICAL: NIH 0. GCS 15. Cranial nerves grossly intact. Normal speech, normal gait. Normal sensory, motor exams. Reflexes 2+ b/l. MEREDITH's negative. Pronator drift negative. Heel/león, finger/nose wnl. PSYCH: Normal mood, normal affect. SKIN: Warm, Dry, normal turgor, no rashes or lesions noted. Course - Re-evaluation Re-evalutation: 07/07/19 19:36 Patient is an afebrile 59-year-old male who presents with seizure, back to baseline. Vitals are acceptable without significant tachycardia, tachypnea, or hypoxia. PE is otherwise unremarkable for any focal neurological deficits. Patient is nontoxic-appearing and is tolerating p.o. without difficulty. Patient is now accompanied by his brother who states that he is at baseline with his speech and will on occasion get dates wrong since his stroke in October. Patient states that he is feeling well. Patient is wanting to go home. Brother states that they will build to keep an eye on him. Labs are unremarkable. I do suspect that he has the slight due to dehydration status and seizure. Patient received fluids as well as Keppra IV. Low suspicion for any other systemic emergent condition at this time. Reviewed the importance of following up with neurology. According to the brother he did have one seizure this past spring with the stroke. He did have a CT scan a month ago after his other seizure which was unremarkable including work-up at that time. Patient to recheck with his family doctor after the weekend. Return to the ED with any other worsening/concerning symptoms. Patient/brother in agreement. I did review with Dr. Larsen who is in agreement with dispo/plan. - Vital Signs Vital signs: Temp Pulse Resp BP Pulse Ox 98.4 F 24 H 160/131 H 94 07/07/19 17:04 07/07/19 18:01 07/07/19 18:01 07/07/19 18:01 - Laboratory Result Diagrams: 07/07/19 16:20 07/07/19 16:20 Laboratory results interpreted by me: 07/07/19 07/07/19 07/07/19 16:20 16:20 17:49 MCV 101 H RDW 15.4 H Seg Neutrophils % 78.7 H Chloride 92 L Carbon Dioxide 21 L Anion Gap 24 H Glucose 113 H Direct Bilirubin 0.5 H Alkaline Phosphatase 183 H Total Protein 8.4 H Urine Protein 100 H Urine Glucose (UA) 50 H Urine Blood SMALL H Discharge - Discharge Clinical Impression: Seizure Condition: Stable Disposition: HOME, SELF-CARE Instructions: Seizure, Known Epileptic ([facility]) Additional Instructions: Rest, Ice/cool compress Tylenol/ibuprofen as needed Light stretches daily Strength exercises as able Moist heat and massage may help F/u with your PCP in 3-5 days for a recheck Schedule appointment with neurology for further evaluation and management* Return to the ED with any worsening symptoms and/or development of fever, headache, change in pupil sizes, changes in behavior/mentation/vision/speech, chest pain, palpitations, syncope, shortness of breath, trouble breathing, abdom inal pain, n/v/d, blood in stool/urine, loss of control of bowel/bladder, urinary retention, muscle weakness/paralysis, saddle anesthesia, numbness/tingling, or other worsening symptoms that are concerning to you. Forms: Smoking Cessation Education Referrals: JOANNE HIGUERA ANP-C [NO LOCAL MD] - Follow up as needed ACE CHEN MD [COMMUNITY BASED STAFF] - Follow up as needed JENNIFER LUA MD [NO LOCAL MD] - Follow up as needed
[2019-07-07] MEDS: NORMAL SALINE 1000 ML 1,000 ML IV PRN ×2 (17:22→18:12)
[2019-07-07 18:18] LABS: ABSOLUTE LYMPHOCYTES (AUTO) 1.4 10^3/uL (0.5-4.7); ABSOLUTE MONOCYTES (AUTO) 0.6 10^3/uL (0.1-1.4); ABSOLUTE NEUT (AUTO) 7.7 10^3/uL (1.7-8.2); BASOPHILS % (AUTO) 0.4 % (0-2); EOSINOPHILS % (AUTO) 0.1 % (0-6); HEMATOCRIT 43.9 % (37.9-51.0); HEMOGLOBIN 14.6 g/dL (13.5-17.0); LYMPHOCYTES % (AUTO) 14.6 % (13-45); MEAN CORPUSCULAR HEMOGLOBIN 33.4 pg (27.0-33.4); MEAN CORPUSCULAR HGB CONC 33.2 g/dL (32.0-36.0); MEAN CORPUSCULAR VOLUME 101 fl (80-97); MONOCYTES % (AUTO) 6.2 % (3-13); PLATELET COUNT 356 10^3/uL (150-450); RED BLOOD COUNT 4.37 10^6/uL (4.35-5.55); RED CELL DISTRIBUTION WIDTH 15.4 % (11.5-14.0); SEGMENTED NEUTROPHILS % (AUTO) 78.7 % (42-78); TOTAL CELLS COUNTED % (AUTO) 100 %; WHITE BLOOD COUNT 9.7 10^3/uL (4.0-10.5)
[2019-07-07 18:22] LABS: APPEARANCE,URINE CLEAR; BILIRUBIN,URINE NEGATIVE (NEGATIVE); COLOR,URINE STRAW; GLUCOSE, URINE 50 mg/dL (NEGATIVE); KETONES,URINE NEGATIVE (NEGATIVE); LEUKOCYTE ESTERASE,URINE NEGATIVE (NEGATIVE); NITRITE,URINE NEGATIVE (NEGATIVE); PROTEIN,URINE 100 mg/dL (NEGATIVE); UROBILINOGEN,URINE NEGATIVE mg/dL (<2.0)
[2019-07-07 18:36] LABS: URINE AMPHETAMINES SCREEN NEGATIVE; URINE BARBITURATES SCREEN NEGATIVE; URINE BENZODIAZEPINES SCREEN NEGATIVE; URINE COCAINE SCREEN NEGATIVE; URINE MARIJUANA (THC) SCREEN NEGATIVE; URINE METHADONE SCREEN NEGATIVE; URINE PHENCYCLIDINE SCREEN NEGATIVE
[2019-07-07 18:37] LABS: ALBUMIN 4.6 g/dL (3.5-5.0); ALKALINE PHOSPHATASE 183 U/L (38-126); ASPARTATE AMINO TRANSFERASE 56 U/L (17-59); BILIRUBIN,DIRECT 0.5 mg/dL (0.0-0.4); BILIRUBIN,TOTAL 0.8 mg/dL (0.2-1.3); BLOOD UREA NITROGEN 8 mg/dL (7-20); CALCIUM 9.8 mg/dL (8.4-10.2); GLUCOSE 113 mg/dL (75-110); POTASSIUM 3.9 mmol/L (3.6-5.0); TOTAL PROTEIN 8.4 g/dL (6.3-8.2)
[2019-07-07 18:41] LABS: ALCOHOL < 10 mg/dL (NONE DETECTED)
[2019-07-07 18:49] LABS: ANION GAP 24 (5-19); CARBON DIOXIDE 21 mmol/L (22-30); CHLORIDE 92 mmol/L (98-107)
[2019-07-07] MEDS ORDERED: NORMAL SALINE 1000 ML 1,000 ML IV ONE (19:23)
[2019-07-07] MEDS ORDERED: CLONIDINE HCL 0.2 MG TABLET PO ONE (20:21)
[2019-07-07 20:48] VITALS: BP 181/87
--- NOTE | 2019-07-07 23:35 | EKG REPORT ---
SEVERITY:- ABNORMAL ECG - SINUS RHYTHM PROBABLE INFERIOR INFARCT, AGE INDETERMINATE PROBABLE LATERAL INFARCT, AGE INDETERMINATE PROLONGED QT INTERVAL : Confirmed by: Rahul Hoang 07-Jul-2019 23:34:49
== END 2019-07-07 20:48 | disposition home or self-care (01) ==
LOC: ER 16:51
DX: R56.9 Unspecified convulsions (principal); S01.552A Open bite of oral cavity, initial encounter; X58.XXXA Exposure to other specified factors, initial encounter; I10 Essential (primary) hypertension; F17.200 Nicotine dependence, unspecified, uncomplicated; Z86.73 Personal history of transient ischemic attack (TIA), and cerebral infarction without residual deficits
CPT/HCPCS: 93005; 36415; 82962; 80307 ×2; 83735; 85025; 80053; 81001; 93010; J7030; J1953; 96361; 96365; 99284

== ENCOUNTER 2020-04-13 16:14 | Emergency (ER) | payer MEDICARE, BC ==
[2020-04-13 16:53] LABS: ABSOLUTE EOSINOPHILS # (AUTO) 0.1 10^3/uL (0.0-0.6); ABSOLUTE LYMPHOCYTES (AUTO) 1.5 10^3/uL (0.5-4.7); ABSOLUTE MONOCYTES (AUTO) 0.5 10^3/uL (0.1-1.4); ABSOLUTE NEUT (AUTO) 5.8 10^3/uL (1.7-8.2); BASOPHILS % (AUTO) 0.5 % (0-2); EOSINOPHILS % (AUTO) 1.3 % (0-6); HEMATOCRIT 52.2 % (37.9-51.0); HEMOGLOBIN 17.6 g/dL (13.5-17.0); LYMPHOCYTES % (AUTO) 18.8 % (13-45); MEAN CORPUSCULAR HEMOGLOBIN 32.2 pg (27.0-33.4); MEAN CORPUSCULAR HGB CONC 33.7 g/dL (32.0-36.0); MEAN CORPUSCULAR VOLUME 95 fl (80-97); MONOCYTES % (AUTO) 6.8 % (3-13); PLATELET COUNT 276 10^3/uL (150-450); RED BLOOD COUNT 5.48 10^6/uL (4.35-5.55); RED CELL DISTRIBUTION WIDTH 14.1 % (11.5-14.0); SEGMENTED NEUTROPHILS % (AUTO) 72.6 % (42-78); TOTAL CELLS COUNTED % (AUTO) 100 %
[2020-04-13 17:03] LABS: ALBUMIN 5.3 g/dL (3.5-5.0); ALKALINE PHOSPHATASE 127 U/L (38-126); ASPARTATE AMINO TRANSFERASE 108 U/L (17-59); BILIRUBIN,DIRECT 0.3 mg/dL (0.0-0.4); BILIRUBIN,TOTAL 0.7 mg/dL (0.2-1.3); BLOOD UREA NITROGEN 15 mg/dL (7-20); CALCIUM 10.7 mg/dL (8.4-10.2); POTASSIUM 4.5 mmol/L (3.6-5.0); TOTAL PROTEIN 8.2 g/dL (6.3-8.2)
[2020-04-13 17:08] LABS: CARBON DIOXIDE 18 mmol/L (22-30); CHLORIDE 98 mmol/L (98-107)
[2020-04-13 17:10] LABS: ALCOHOL < 10 mg/dL (NONE DETECTED); ANION GAP 21 (5-19)
[2020-04-13 17:11] LABS: GLUCOSE 68 mg/dL (75-110)
--- NOTE | 2020-04-13 18:19 | RADIOLOGY REPORT (SQ) ---
EXAM DESCRIPTION: CHEST SINGLE VIEW IMAGES COMPLETED DATE/TIME: 04/13/2020 4:51 pm REASON FOR STUDY: sob COMPARISON: 10/21/2017 EXAM PARAMETERS: NUMBER OF VIEWS: One view. TECHNIQUE: Single frontal radiographic view of the chest acquired. RADIATION DOSE: NA LIMITATIONS: None. FINDINGS: LUNGS AND PLEURA: No opacities, masses or pneumothorax. No pleural effusion. MEDIASTINUM AND HILAR STRUCTURES: No masses. Contour normal. HEART AND VASCULAR STRUCTURES: Heart normal in size. Normal vasculature. BONES: No acute findings. HARDWARE: None in the chest. OTHER: No other significant finding. IMPRESSION: NO ACUTE RADIOGRAPHIC FINDING IN THE CHEST. TECHNICAL DOCUMENTATION: JOB ID: [id number] 2010 [employer]- All Rights Reserved Reading location - IP/workstation name: [email or web address]
--- NOTE | 2020-04-13 18:21 | RADIOLOGY REPORT (SQ) ---
EXAM DESCRIPTION: CT HEAD WITHOUT IMAGES COMPLETED DATE/TIME: 04/13/2020 4:50 pm REASON FOR STUDY: sob altered mental status. COMPARISON: 05/23/2019 TECHNIQUE: Axial images acquired through the brain without intravenous contrast. Images reviewed wi th bone, brain and subdural windows. Additional sagittal and coronal reconstructions were generated. Images stored on PACS. All CT scanners at this facility use dose modulation, iterative reconstruction, and/or weight based d osing when appropriate to reduce radiation dose to as low as reasonably achievable (ALARA). [facility]: Dose Right [facility]: CareDose [facility]: Dose Right [facility]: Teradose 4D [facility]: Smart Phone2Action RADIATION DOSE: CT Rad equipment meets quality standard of care and radiation dose reduction techniq ues were employed. CTDIvol: 53.2 mGy. DLP: 1017 mGy-cm. mGy. LIMITATIONS: None. FINDINGS: VENTRICLES: Normal size and contour. CEREBRUM: Chronic encephalomalacia and gliosis in the left parietal lobe is stable from previous. No masses. No hemorrhage. No midline shift. No evidence for acute infarction. Gliosis in the left co [place] radiata, unchanged. Normal strauss-white matter differentiation. There is intracranial atheroscle rosis. CEREBELLUM: No masses. No hemorrhage. No alteration of density. No evidence for acute infarction. EXTRAAXIAL SPACES: No fluid collections. No masses. ORBITS AND GLOBE: No intra- or extraconal masses. Normal contour of globe without masses. CALVARIUM: No fracture. PARANASAL SINUSES: No fluid or mucosal thickening. SOFT TISSUES: No mass or hematoma. OTHER: No other significant finding. IMPRESSION: 1. No acute intracranial hemorrhage, mass, or evidence of acute territorial infarct. 2. Chronic encephalomalacia and gliosis in the left MCA distribution unchanged from prior. 3. There is intracranial atherosclerosis. EVIDENCE OF ACUTE STROKE: NO. COMMENT: Quality ID # 436: Final reports with documentation of one or more dose reduction techniques (e.g., Automated exposure control, adjustment of the mA and/or kV according to patient size, use of iterative reconstruction technique) TECHNICAL DOCUMENTATION: JOB ID: [id number] 2010 [employer]- All Rights Reserved Reading location - IP/workstation name: [email or web address]
[2020-04-13 18:34] LABS: APPEARANCE,URINE SLIGHTLY-CLOUDY; BILIRUBIN,URINE NEGATIVE (NEGATIVE); COLOR,URINE YELLOW; GLUCOSE, URINE NEGATIVE (NEGATIVE); KETONES,URINE NEGATIVE (NEGATIVE); LEUKOCYTE ESTERASE,URINE NEGATIVE (NEGATIVE); NITRITE,URINE NEGATIVE (NEGATIVE); PROTEIN,URINE 100 mg/dL (NEGATIVE); URINE SPECIFIC GRAVITY 1.014; UROBILINOGEN,URINE NEGATIVE mg/dL (<2.0)
[2020-04-13 18:54] LABS: URINE AMPHETAMINES SCREEN NEGATIVE; URINE BARBITURATES SCREEN NEGATIVE; URINE BENZODIAZEPINES SCREEN NEGATIVE; URINE COCAINE SCREEN NEGATIVE; URINE METHADONE SCREEN NEGATIVE; URINE PHENCYCLIDINE SCREEN NEGATIVE
[2020-04-13 18:55] LABS: URINE MARIJUANA (THC) SCREEN UNCONFIRMED POSITIVE
--- NOTE | 2020-04-13 19:04 | ER Document Report ---
ED General - General Chief Complaint: Seizure Stated Complaint: POSSIBLE SEIZURE Primary Care Provider: ACE YU PA-C [Primary Care Provider] - Follow up as needed Mode of Arrival: Medic Information source: Patient, Relative, Emergency Med Personnel Notes: Patient is a 60-year-old male presenting to the emergency department via EMS chief complaint of seizure-like activity. Patient states that over the past couple of days he has been more exposed to the heat however this morning he got up did activities of daily living and went to have lunch and had several beers at lunch at which point he had a syncopal event followed by seizure-like activity. There has been a recent change in the patient's seizure medications. The patient has had a prior stroke partially affecting the right side. Family member at bedside states that the patient seemed quite confused initially but has at time of my evaluation completely returned to baseline. Patient denies travel history trauma history sick contacts no bad food exposure. Patient does endorse excessive tobacco and alcohol use/abuse. TRAVEL OUTSIDE OF THE [place] IN LAST 30 DAYS: No - HPI Onset: Just prior to arrival Onset/Duration: Sudden Quality of pain: No pain Severity: None Associated symptoms: Slow to respond, Sweating, Weakness Exacerbated by: Denies Relieved by: Denies Similar symptoms previously: Yes Recently seen / treated by doctor: No - Related Data Allergies/Adverse Reactions: No Known Allergies Allergy (Verified 04/13/20 16:32) Past Medical History - General Information source: Patient, Relative - Social History Smoking Status: Current Every Day Smoker Cigarette use (# per day): Yes Chew tobacco use (# tins/day): No Smoking Education Provided: Yes Frequency of alcohol use: Heavy Drug Abuse: Marijuana Lives with: Family Family History: Reviewed & Not Pertinent Patient has suicidal ideation: No Patient has homicidal ideation: No - Past Medical History Cardiac Medical History: Reports: Hx Hypertension Denies: Hx Coronary Artery Disease, Hx Heart Attack Pulmonary Medical History: Denies: Hx Asthma, Hx Bronchitis, Hx COPD, Hx Pneumonia Neurological Medical History: Reports: Hx Cerebrovascular Accident, Hx Seizures Renal/ Medical History: Denies: Hx Peritoneal Dialysis Musculoskeletal Medical History: Denies Hx Arthritis Past Surgical History: Reports: Hx Appendectomy, Hx Orthopedic Surgery - L knee - Immunizations Hx Diphtheria, Pertussis, Tetanus Vaccination: Yes Review of Systems - Review of Systems Constitutional: No symptoms reported EENT: No symptoms reported Cardiovascular: No symptoms reported Respiratory: No symptoms reported Gastrointestinal: No symptoms reported Genitourinary: No symptoms reported Male Genitourinary: No symptoms reported Musculoskeletal: See HPI Skin: No symptoms reported Hematologic/Lymphatic: No symptoms reported Neurological/Psychological: See HPI -: Yes All other systems reviewed and negative Physical Exam - Vital signs Vitals: Resp Pulse Ox 20 90 L 04/13/20 16:29 04/13/20 16:29 - Notes Notes: PHYSICAL EXAMINATION: GENERAL: Well-appearing, well-nourished and in no acute distress. HEAD: Atraumatic, normocephalic. EYES: Pupils equal round and reactive to light, extraocular movements intact, sclera anicteric, conjunctiva are normal. ENT: nares patent, oropharynx clear without exudates. Moist mucous membranes. NECK: Normal range of motion, supple without lymphadenopathy, no appreciable JVD LUNGS: Lungs clear to auscultation bilaterally and equal. No wheezes rales or rhonchi. HEART: Regular rate and rhythm without murmurs ABDOMEN: Soft, nontender, normal bowel sounds. No guarding, no rebound. No masses appreciated. EXTREMITIES: Active full range of motion, no pitting or edema. No cyanosis. 2+ pulses x4 NEUROLOGICAL: At time of evaluation the patient is alert and oriented x3, Glascow coma scale of 15, cranial nerves II through XII are grossly intact, sensations intact, motor is intact, with the exception of some decreased strength to the right hand and foot but patient states that this is chronic, there are no signs of nystagmus, there is no pronator drift, there is no facial asymmetry, tongue protrusion is midline, reflexes are equal and bilateral, patient answers all questions appropriately follows commands appropriately. SKIN: Warm, Dry, and intact. Normal turgor, no rashes or lesions noted. 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 The patient is remained stable without signs of decompensation. The patient has been reevaluated multiple times and has actually ambulated without difficulty. After reviewing the patient's laboratory EKG and radiologic studies I feel that this event was at least in part caused by the patient's alcohol consumption earlier today. I discussed this at length with the patient and his brother at bedside. CT does not show any acute changes laboratory studies are within normal limits. EKG did not show any concerning features. I recommend that the patient follow-up with his primary care provider in the next couple of days for further evaluation and treatment. At this point in time I will not be making any alterations to the patient's medication regime. Patient is agreeable with same and recommended to decrease/stop his alcohol and tobacco use. - Vital Signs Vital signs: Temp Pulse Resp BP Pulse Ox 98.4 F 23 H 187/95 H 96 04/13/20 16:30 04/13/20 19:01 04/13/20 19:01 04/13/20 19:01 - Laboratory Result Diagrams: 04/13/20 16:03 04/13/20 16:03 Laboratory results interpreted by me: 04/13/20 04/13/20 04/13/20 16:03 16:03 18:09 Hgb 17.6 H Hct 52.2 H RDW 14.1 H Carbon Dioxide 18 L Anion Gap 21 H Glucose 68 L Calcium 10.7 H AST 108 H ALT 79 H Alkaline Phosphatase 127 H Albumin 5.3 H Urine Protein 100 H Urine Blood SMALL H - Diagnostic Test Radiology reviewed: Reports reviewed - EKG Interpretation by Me EKG shows normal: Sinus rhythm Rate: Normal Rhythm: NSR When compared to previous EKG there are: No significant change Additional EKG results interpreted by me: 04/13/20 19:12 Moderate artifact on EKG lead the computer to read it is atrial fibrillation however there is no variation in the heart RR intervals. Discharge - Discharge Clinical Impression: Seizure, Generalized weakness Heat exposure Qualifiers: Encounter type: initial encounter Qualified Code(s): T67.9XXA - Effect of heat and light, unspecified, initial encounter Condition: Stable Disposition: HOME, SELF-CARE Additional Instructions: Seizure, Known Epileptic You have had a seizure. Seizures may "break through" in an epileptic due to stress of infection or injury, a change in blood chemistry, or drug and alcohol use. Another common cause is failure to take medication as prescribed. Your doctor has evaluated your situation for the likely cause of this seizure. It is important that you follow his advice concerning any medication changes and follow-up care. Further testing of anti-seizure medication levels in your blood may be necessary. If you have a commercial driver's license driver's license, it's important that you DO NOT DRIVE until given permission by your physician. This seizure must be reported to the commercial driver's license driver's license bureau. Call the doctor or return if seizures recur, or if new or unusual symptoms arise -- such as severe headache, confusion, excessive sleepiness, local weakness or numbness, neck stiffness, or fever. Recommend staying out of the heat for the next couple of days. Recommend following up with your neurologist or whoever manages your seizure disorder. Return to the emergency department for worsening symptoms. Referrals: ACE YU PA-C [Primary Care Provider] - Follow up as needed
[2020-04-13 19:09] VITALS: BP 187/95
--- NOTE | 2020-04-13 20:24 | EKG REPORT ---
SEVERITY:- ABNORMAL ECG - SINUS RHYTHM 71 BPM NONSPECIFIC INTRAVENTRICULAR CONDUCTION DELAY PROBABLE INFERIOR INFARCT, AGE INDETERMINATE ANTEROLATERAL INFARCT, OLD : Confirmed by: Ramu Carbajal MD 13-Apr-2020 20:22:34
== END 2020-04-13 19:32 | disposition home or self-care (01) ==
LOC: ER 16:14
DX: T67.9XXA Effect of heat and light, unspecified, initial encounter (principal); R56.9 Unspecified convulsions; R53.1 Weakness; R61 Generalized hyperhidrosis; X30.XXXA Exposure to excessive natural heat, initial encounter; F17.210 Nicotine dependence, cigarettes, uncomplicated; I10 Essential (primary) hypertension
CPT/HCPCS: 36415; 70450; 71045; 80053; 80307; 81001; 82962; 83735; 85025; 93005; 93010; 99285

== ENCOUNTER 2020-05-06 15:05 | Inpatient (IN) | payer BC, MEDICARE ==
[2020-05-06 15:31] LABS: ABSOLUTE LYMPHOCYTES (AUTO) 1.1 10^3/uL (0.5-4.7); ABSOLUTE MONOCYTES (AUTO) 0.6 10^3/uL (0.1-1.4); ABSOLUTE NEUT (AUTO) 9.8 10^3/uL (1.7-8.2); BASOPHILS % (AUTO) 0.4 % (0-2); EOSINOPHILS % (AUTO) 0.4 % (0-6); HEMATOCRIT 47.7 % (37.9-51.0); HEMOGLOBIN 16.1 g/dL (13.5-17.0); LYMPHOCYTES % (AUTO) 9.9 % (13-45); MEAN CORPUSCULAR HEMOGLOBIN 32.5 pg (27.0-33.4); MEAN CORPUSCULAR HGB CONC 33.8 g/dL (32.0-36.0); MEAN CORPUSCULAR VOLUME 96 fl (80-97); MONOCYTES % (AUTO) 5.1 % (3-13); PLATELET COUNT 246 10^3/uL (150-450); RED BLOOD COUNT 4.96 10^6/uL (4.35-5.55); RED CELL DISTRIBUTION WIDTH 13.9 % (11.5-14.0); SEGMENTED NEUTROPHILS % (AUTO) 84.2 % (42-78); TOTAL CELLS COUNTED % (AUTO) 100 %; WHITE BLOOD COUNT 11.6 10^3/uL (4.0-10.5)
[2020-05-06 15:51] LABS: ALBUMIN 4.6 g/dL (3.5-5.0); ALCOHOL < 10 mg/dL (NONE DETECTED); ALKALINE PHOSPHATASE 125 U/L (38-126); ANION GAP 18 (5-19); ASPARTATE AMINO TRANSFERASE 65 U/L (17-59); BILIRUBIN,DIRECT 0.2 mg/dL (0.0-0.4); BILIRUBIN,TOTAL 0.9 mg/dL (0.2-1.3); BLOOD UREA NITROGEN 9 mg/dL (7-20); CALCIUM 9.6 mg/dL (8.4-10.2); CARBON DIOXIDE 16 mmol/L (22-30); CHLORIDE 100 mmol/L (98-107); GLUCOSE 108 mg/dL (75-110); POTASSIUM 4.5 mmol/L (3.6-5.0); TOTAL PROTEIN 7.4 g/dL (6.3-8.2)
--- NOTE | 2020-05-06 16:13 | ER Document Report ---
ED General - General Chief Complaint: Probable Seizure Stated Complaint: POSSIBLE SEIZURE Time Seen by Provider: 05/06/20 16:03 Primary Care Provider: ACE YU PA-C [Primary Care Provider] - Follow up as needed Notes: This 60-year-old man presents today emergency department with a history of likely seizure activity. He was at a diner in [facility] when he apparently became confused and then had to be helped to the ground where he had generalized shaking activity. Upon arrival to the diner EMS notes that the patient was "postictal". He had no injuries associated with the episode, no urinary or stool incontinence. He was confused upon arrival to the emergency department unable to identify the year, location or basic information. Patient does drink 1-2 beers daily states that he has had a 2-day. Where he is not had alcohol intake. Apparently known seizure disorder and presently medication unknown. TRAVEL OUTSIDE OF THE [place] IN LAST 30 DAYS: No - Related Data Allergies/Adverse Reactions: No Known Allergies Allergy (Verified 04/13/20 16:32) Past Medical History - Social History Smoking Status: Current Every Day Smoker Frequency of alcohol use: Heavy Drug Abuse: None Family History: Reviewed & Not Pertinent - Past Medical History Cardiac Medical History: Reports: Hx Hypertension Denies: Hx Coronary Artery Disease, Hx Heart Attack Pulmonary Medical History: Denies: Hx Asthma, Hx Bronchitis, Hx COPD, Hx Pneumonia Neurological Medical History: Reports: Hx Cerebrovascular Accident, Hx Seizures Renal/ Medical History: Denies: Hx Peritoneal Dialysis Musculoskeletal Medical History: Denies Hx Arthritis Past Surgical History: Reports: Hx Appendectomy, Hx Orthopedic Surgery - L knee - Immunizations Hx Diphtheria, Pertussis, Tetanus Vaccination: Yes Review of Systems - Review of Systems Notes: Constitutional: Negative for fever. HENT: Negative for sore throat. Eyes: Negative for visual changes. Cardiovascular: Negative for chest pain. Respiratory: Negative for shortness of breath. Gastrointestinal: Negative for abdominal pain, vomiting or diarrhea. Genitourinary: Negative for dysuria. Musculoskeletal: Negative for back pain. Skin: Negative for rash. Neurological: + Seizure activity 10 point ROS negative except as marked above and in HPI. Physical Exam - Vital signs Vitals: Resp Pulse Ox 19 93 05/06/20 15:10 05/06/20 15:10 - Notes Notes: PHYSICAL EXAMINATION: Physical Exam: General: Well-nourished well-developed in no acute distress HEENT: NC/AT, pupils equal round and reactive to light, MM moist,nares clear, oropharynx clear, airway patent Neck: supple, no adenopathy, no masses. Good range of motion Lungs: clear, no wheezing, no rales no rhonchi CVS: Regular rate and rhythm no murmur gallop or rub Abdomen: Soft, active, nontender, no masses, no hepatosplenomegaly Ext: No edema, clubbing or cyanosis. Neuro: Alert and responsive, moving all 4 extremities on command, cranial nerves intact, no focal findings Skin: Intact no open lesions, no rash PSYCH: Normal mood, normal affect. Course - Vital Signs Vital signs: Temp Pulse Resp BP Pulse Ox 98.5 F 16 166/113 H 96 05/06/20 15:31 05/06/20 19:02 05/06/20 19:02 05/06/20 19:02 - Laboratory Result Diagrams: 05/06/20 15:20 05/06/20 15:20 Laboratory results interpreted by me: 05/06/20 05/06/20 05/06/20 15:20 15:20 16:20 WBC 11.6 H Lymph % (Auto) 9.9 L Absolute Neuts (auto) 9.8 H Seg Neutrophils % 84.2 H Sodium 134.2 L Carbon Dioxide 16 L Magnesium 2.4 H AST 65 H ALT 54 H Urine Protein 100 H Urine Blood SMALL H - Diagnostic Test Radiology reviewed: Image reviewed, Reports reviewed Discharge - Discharge Clinical Impression: Seizure, Seizure disorder, Alcohol abuse Condition: Good Disposition: HOME, SELF-CARE Additional Instructions: You have had a seizure. Seizures may "break through" in an epileptic due to stress of infection or injury, a change in blood chemistry, or drug and alcohol use. Another common cause is failure to take medication as prescribed. It is important that you follow his advice concerning any medication changes and follow-up care. Further testing of anti-seizure medication levels in your blood may be necessary. If you have a driver guard's license, it's important that you DO NOT DRIVE until given permission by your physician. This seizure must be reported to the driver guard's license bureau. Call the doctor or return if seizures recur, or if new or unusual symptoms arise -- such as severe headache, confusion, excessive sleepiness, local weakness or numbness, neck stiffness, or fever. HOME CARE INSTRUCTIONS & INFORMATION: Thank you for choosing us for your medical needs. We hope you're satisfied with the care you received. After you leave, you must properly care for your problem and, at the same time, observe its progress. Any condition can change. Some illnesses can change rapidly over hours or days. If your condition worsens, return to the Emergency Department or see your physician promptly. ABOUT YOUR X-RAYS AND EKG'S: If you had an EKG or X-rays taken, they have been read by the Emergency Physician. The X-rays and EKG's will also be read by a Radiologist or Valet within 24 hours. If discrepancies are noted, you will be notified by telephone. Please be certain the ED has a correct telephone number & address where you can be reached. Also, realize that some fractures or abnormalities do not show up on initial X-rays. If your symptoms continue, see your physician. ABOUT YOUR LABORATORY TEST: If you had laboratory tests, the results have been reviewed by the Emergency Physician. Some test results (for example cultures) may not be available for several days. You will be contacted if any test result shows you need additional treatment. Please be certain the ED has a correct t elephone number and address where you can be reached. ABOUT YOUR MEDICATIONS: You will receive instructions on how to take your medicine on the prescription label you receive. Additional information may be provided by the Pharmacy. If you have questions afterwards, call the ED for clarification or further instructions. Some prescribed medications may cause drowsiness. Do not perform tasks such as driving a car or operating machinery without consulting your Pharmacist. If you feel you need a refill of pain medication, your condition will need re-evaluation. Please do not call for a refill of any medication. ABOUT YOUR SIGNATURE: Signature of this document acknowledges to followin. Understanding that you received emergency treatment and that you may be released before al medical problems are known or treated. Please be certain the ED has a correct phone number & address where you can be reached. 2. Acknowledgement that you will arrange for follow-up care as recommended. 3. Authorization for the Emergency Physician to provide information to your follow-up Physician in order to maximize your care. AT ANY TIME, IF YOUR SYMPTOMS CHANGE SIGNIFICANTLY OR WORSEN OR YOU DEVELOP NEW SYMPTOMS, RETURN TO THE EMERGENCY DEPARTMENT IMMEDIATELY FOR RE-EVALUATION. OUR GOAL IS TO PROVIDE EXCELLENT MEDICAL CARE! WE HOPE THAT WE HAVE MET YOUR EXPECTATIONS DURING YOUR EMERGENCY DEPARTMENT VISIT AND THAT YOU FEEL YOU HAVE RECEIVED EXCELLENT CARE! Referrals: ACE YU PA-C [Primary Care Provider] - Follow up as needed
--- NOTE | 2020-05-06 16:38 | RADIOLOGY REPORT (SQ) ---
EXAM DESCRIPTION: CHEST SINGLE VIEW IMAGES COMPLETED DATE/TIME: 05/06/2020 4:28 pm REASON FOR STUDY: Possible aspiration COMPARISON: 04/13/2020 TECHNIQUE: Single frontal radiographic view of the chest acquired. NUMBER OF VIEWS: One view. LIMITATIONS: None. FINDINGS: LUNGS AND PLEURA: No pneumothorax. No consolidation or pleural effusion. MEDIASTINUM AND HILAR STRUCTURES: Stable. HEART AND VASCULAR STRUCTURES: Stable. BONES: No acute findings. HARDWARE: None in the chest. OTHER: No other significant finding. IMPRESSION: NO ACUTE FINDINGS. TECHNICAL DOCUMENTATION: JOB ID: [id number] [place]-72 2010 [employer]- All Rights Reserved Reading location - IP/workstation name: [email or web address] Ratings
[2020-05-06 16:50] LABS: APPEARANCE,URINE CLEAR; BILIRUBIN,URINE NEGATIVE (NEGATIVE); COLOR,URINE YELLOW; GLUCOSE, URINE NEGATIVE (NEGATIVE); KETONES,URINE NEGATIVE (NEGATIVE); LEUKOCYTE ESTERASE,URINE NEGATIVE (NEGATIVE); NITRITE,URINE NEGATIVE (NEGATIVE); PROTEIN,URINE 100 mg/dL (NEGATIVE); URINE SPECIFIC GRAVITY 1.008; UROBILINOGEN,URINE NEGATIVE mg/dL (<2.0)
[2020-05-06 16:57] LABS: URINE AMPHETAMINES SCREEN NEGATIVE; URINE BARBITURATES SCREEN NEGATIVE; URINE BENZODIAZEPINES SCREEN NEGATIVE; URINE COCAINE SCREEN NEGATIVE; URINE MARIJUANA (THC) SCREEN NEGATIVE; URINE METHADONE SCREEN NEGATIVE; URINE PHENCYCLIDINE SCREEN NEGATIVE
[2020-05-06] MEDS ORDERED: LORAZEPAM INJ 2 MG/1 ML VIAL IV ONE ×2 (17:24→17:39)
[2020-05-06] MEDS ORDERED: NORMAL SALINE 1000 ML 1,000 ML with POTASSIUM CHLORIDE 20 MEQ, MAGNESIUM SULFATE 8 MEQ,... IV SCH ×5 (18:00)
[2020-05-06] MEDS ORDERED: MVI, ADULT NO.1 WITH VIT K INJ 10 ML VIAL IV ONE (18:05)
[2020-05-06] MEDS ORDERED: THIAMINE HCL INJ 200 MG/2 ML VIAL ONE (18:07)
[2020-05-06] MEDS ORDERED: MAGNESIUM SULFATE INJ 8 MEQ/2 ML IV ONE (18:44)
[2020-05-06] MEDS ORDERED: POTASSI CL 20 MEQ/50 ML RIDER 20 MEQ/50 ML RTUPB IV ONE (18:48)
[2020-05-06] MEDS ORDERED: LEVETIRACETAM 1000 MG/NACL-ISO 1,000 MG/100 ML RTUPB IV ONE (19:11)
[2020-05-06] MEDS ORDERED: DIAZEPAM INJ 10 MG/2 ML DISP.SYRIN IV ONE ×2 (20:46→21:55)
--- NOTE | 2020-05-06 23:05 | RADIOLOGY REPORT (SQ) ---
INDICATION: ams. COMPARISON: April 13, 2020 CORRELATION: None TECHNIQUE: Noncontrast spiral axial CT images were obtained from the skull base to vertex. This exam was performed according to our departmental dose-optimization program, which includes automated exposure control, adjustment of the mA and/or kV according to patient size and/or use of iterative reconstruction techniques. FINDINGS: There is no evidence of acute intracranial hemorrhage, midline shift, mass effect or mass lesion. Cephalization left parietal secondary to a remote event. No adverse change when compared to prior, when accounting for differences in positioning and angulation. . Ventricles and extracerebral spaces are within normal limits, for age. The visualized paranasal sinuses are grossly clear. The orbits and eyeballs are unremarkable. The mastoid air cells are clear. Skull base and calvarium appear intact. IMPRESSION: No acute intracranial process is identified. Encephalomalacia from a remote event. The cause of the patient's mental status change is not identified on this examination.
[2020-05-07] MEDS ORDERED: PROMETHAZINE HCL INJ 25 MG/1 ML VIAL IV PRN (00:03)
[2020-05-07] MEDS ORDERED: ONDANSETRON HCL INJ/PF 4 MG/2 ML SDV IV PRN (00:03)
[2020-05-07] MEDS ORDERED: TEMAZEPAM 7.5 MG CAPSULE PO PRN (00:03)
[2020-05-07] MEDS ORDERED: IPRATROPIUM/ALBUTEROL 0.5-2.5 MG/3 ML AMPUL NEB PRN (00:03)
[2020-05-07] MEDS ORDERED: ACETAMINOPHEN 325 MG TABLET PO PRN (00:03)
[2020-05-07] MEDS ORDERED: METOPROLOL TARTRATE PF/INJ 5 MG/5 ML SDV IV PRN (00:08)
[2020-05-07] MEDS ORDERED: LORAZEPAM INJ 2 MG/1 ML VIAL IV PRN ×3 (00:08→08:01)
[2020-05-07] MEDS ORDERED: DIAZEPAM INJ 10 MG/2 ML DISP.SYRIN IV PRN (00:08)
[2020-05-07] MEDS: HYDRALAZINE HCL INJ/PF 20 MG/1 ML SDV IV PRN ×2 (00:33→08:25)
[2020-05-07] MEDS: DEXTROSE 5%-NORMAL SALINE 1,000 ML IV PRN ×2 (01:13→15:34)
--- NOTE | 2020-05-07 03:39 | PDOC H&P ---
History of Present Illness Admission Date/PCP: 05/06/20 22:15 ACE YU PA-C History of Present Illness: ACE DASILVA is a 60 year old male past medical history of CVA, seizure disor pierre and etoch disorder. Source of history is ED physician and chart review as patient does not provide any history due to mental status. He was was having dinner at [facility] when he was noted to become confused helped to the ground and noted to have seizure-like activity, EMS was called, patient was noted to be postictal, had not sustained any injury, has not had any urinary or bowel incontinence, he did appear to be confused. As per ED physician patient has history of alcohol abuse and his last alcohol intake was 2 days ago. Patient was going to be discharged but was observed to be developing symptoms of alcohol withdrawal, patient was started on banana bag and and IV benzodiazepines and hospitalist was consulted for admission. On my encounter patient is laying in bed, seems to be very lethargic however easily arousable, but not alert and oriented to person place and time, patient does move all extremities unfortunately does not follow any command, when asked for his name he just mumbles unintelligible words. He does not appear to be in any acute distress. Patient is supposed to be on Keppra for his seizure disorder on medication review patient does not appear to be on any seizure medications. Past Medical History Cardiac Medical History: Reports: Hypertension Denies: Coronary Artery Disease, Myocardial Infarction Pulmonary Medical History: Denies: Asthma, Bronchitis, Chronic Obstructive Pulmonary Disease (COPD), Pneumonia Neurological Medical History: Reports: Seizures Musculoskeltal Medical History: Denies: Arthritis Psychiatric Medical History: Denies: Depression Hematology: Denies: Anemia Past Surgical History Past Surgical History: Reports: Appendectomy, Orthopedic Surgery - L knee Social History Smoking Status: Current Every Day Smoker Family History Family History: Reviewed & Not Pertinent Parental Family History Reviewed: Yes Children Family History Reviewed: Yes Sibling(s) Family History Reviewed.: Yes Medication/Allergy Home Medications: Atorvastatin Calcium [Lipitor 40 mg Tablet] 40 mg PO QHS 10/20/17 Citalopram Hydrobromide [Citalopram HBr] 1 tab PO DAILY 10/20/17 Clonidine HCl 0.2 mg PO DAILY 10/20/17 Lisinopril/Hydrochlorothiazide [Lisinopril-Hctz 20-25 mg Tab] 1 tab PO DAILY 10/20/17 Lisinopril/Hydrochlorothiazide [Lisinopril-Hctz 20-25 mg Tab] 1 tab PO DAILY 10/20/17 Metoprolol Tartrate 100 mg PO DAILY 10/20/17 Diclofenac Sodium [Voltaren] 100 gm TP ASDIR PRN #1 bottle 06/09/18 Allergies/Adverse Reactions: No Known Allergies Allergy (Verified 04/13/20 16:32) Review of Systems ROS unobtainable: Due to mental status Physical Exam Vital Signs: Temp Pulse Resp BP Pulse Ox 98.9 F 73 24 H 149/88 H 96 05/07/20 01:13 05/07/20 02:00 05/07/20 01:13 05/07/20 01:13 05/07/20 01:13 Intake & Output 05/05/20 05/06/20 05/07/20 06:59 06:59 06:59 Intake Total 1123 Balance 1123 Weight 73.6 kg General appearance: PRESENT: no acute distress, disheveled, thin Respiratory exam: PRESENT: clear to auscultation ara. ABSENT: rales, rhonchi, wheezes Cardiovascular exam: PRESENT: RRR. ABSENT: diastolic murmur, rubs, systolic murmur GI/Abdominal exam: PRESENT: normal bowel sounds, soft. ABSENT: distended, guarding, mass, organolmegaly, rebound, tenderness Extremities exam: PRESENT: full ROM. ABSENT: calf tenderness, clubbing, pedal edema Neurological exam: PRESENT: CN II-XII grossly intact, other - Somnolent, arousable, moves all extremities, does not follow any command.. ABSENT: motor sensory deficit Results Laboratory Results: 05/06/20 15:20 05/06/20 15:20 05/06/20 05/06/20 05/06/20 15:20 15:20 16:20 WBC 11.6 H RBC 4.96 Hgb 16.1 Hct 47.7 MCV 96 MCH 32.5 MCHC 33.8 RDW 13.9 Plt Count 246 Seg Neutrophils % 84.2 H Sodium 134.2 L Potassium 4.5 Chloride 100 Carbon Dioxide 16 L Anion Gap 18 BUN 9 Creatinine 1.09 Est GFR ( Amer) > 60 Glucose 108 Calcium 9.6 Magnesium 2.4 H Total Bilirubin 0.9 AST 65 H Alkaline Phosphatase 125 Total Protein 7.4 Albumin 4.6 Urine Color YELLOW Urine Appearance CLEAR Urine pH 5.0 Ur Specific [place] 1.008 Urine Protein 100 H Urine Glucose (UA) NEGATIVE Urine Ketones NEGATIVE Urine Blood SMALL H Urine Nitrite NEGATIVE Ur Leukocyte Esterase NEGATIVE Urine WBC (Auto) 2 Urine RBC (Auto) 3 Impressions: Chest X-Ray 05/06/20 16:17 IMPRESSION: NO ACUTE FINDINGS. Head CT 05/06/20 22:03 IMPRESSION: No acute intracranial process is identified. Encephalomalacia from a remote event. The cause of the patient's mental status change is not identified on this examination. Assessment and Plan - Diagnosis (1) Seizure disorder Is this a current diagnosis for this admission?: Yes Plan: Patient has history of EtOH abuse, last alcohol intake 2 days ago. Patient also has history of extensive left MCA stroke. Patient supposed to be taking Keppra but upon review of his medication Keppra is not listed. Patient does not provide much history due to altered mental status. Not sure if seizure was induced due to EtOH withdrawal or medication noncompliance. Admit to IMCU, seizure precautions, IV Keppra to transition to p.o., aspiration precaution, fall precautions. Keppra level. Outpatient neurology follow-up. (2) Alcohol withdrawal Qualifiers: Complication of substance-induced condition: with perceptual disturbance Qualified Code(s): F10.232 - Alcohol dependence with withdrawal with perceptual disturbance Is this a current diagnosis for this admission?: Yes Plan: History of EtOH abuse and seizure disorder. Patient was brought to ED after witnessed seizure and was postictal. In ED patient was noted to be exhibiting withdrawal symptoms. CIWA could not be assessed as patient is altered and does not provide any history. Admit to IMCU, folic acid, thiamine, benzodiazepines, seizure precautions. (3) History of CVA (cerebrovascular accident) Is this a current diagnosis for this admission?: Yes Plan: History of extensive left MCA stroke. Repeat CT does not show any acute changes, positive for encephalomalacia. Optimize BP, continue statins, continue antiplatelets. (4) Hypertension Qualifiers: Hypertension type: essential hypertension Qualified Code(s): I10 - Essential (primary) hypertension Is this a current diagnosis for this admission?: Yes Plan: Uncontrolled. Appears euvolemic. Resume home meds. Adjust meds as needed. PRN IV hydralazine and metoprolol. - Time Time Spent with patient: 35 or more minutes Medications reviewed and adjusted accordingly: Yes Anticipated Discharge Disposition: Home with Home Health Anticipated Discharge Timeframe: within 72 hours
[2020-05-07] MEDS: ENOXAPARIN SODIUM INJ 40 MG/0.4 ML DISP.SYRIN SUBCUT SCH (09:10)
[2020-05-07] MEDS: ASPIRIN 81 MG TABLET, CHEWABLE PO SCH (09:10)
[2020-05-07] MEDS: FAMOTIDINE INJ/PF 20 MG/2 ML SDV IV SCH ×2 (09:10→21:27)
[2020-05-07] MEDS: FOLIC ACID 1 MG TABLET PO SCH (09:10)
[2020-05-07] MEDS ORDERED: DIAZEPAM 5 MG TABLET PO SCH (10:00)
[2020-05-07] MEDS ORDERED: THIAMINE HCL 100 MG TABLET PO SCH (10:00)
[2020-05-07] MEDS ORDERED: LEVETIRACETAM 1000 MG/NACL-ISO 1,000 MG/100 ML RTUPB IV SCH (10:00)
[2020-05-07 10:36] LABS: ALBUMIN 3.9 g/dL (3.5-5.0); ALKALINE PHOSPHATASE 105 U/L (38-126); ANION GAP 8 (5-19); ASPARTATE AMINO TRANSFERASE 43 U/L (17-59); BILIRUBIN,DIRECT 0.2 mg/dL (0.0-0.4); BILIRUBIN,TOTAL 1.8 mg/dL (0.2-1.3); BLOOD UREA NITROGEN 9 mg/dL (7-20); CARBON DIOXIDE 23 mmol/L (22-30); CHLORIDE 102 mmol/L (98-107); CREATINE KINASE 322 U/L (55-170); GLUCOSE 106 mg/dL (75-110); TOTAL PROTEIN 6.5 g/dL (6.3-8.2)
[2020-05-07 10:40] LABS: POTASSIUM 3.5 mmol/L (3.6-5.0)
--- NOTE | 2020-05-07 13:43 | PDOC PROGRESS REPORT ---
Subjective Progress Note for:: 05/07/20 Subjective:: Patient notably some degree of confusion today. He is now very clearing his thought process. He is able to answer most questions. He admits to taking 3 drinks usually and states he last drank alcohol 2 days before admission. Oftentimes I have to repeat myself several times before he can understand the question. He is not quite sure how he got to the hospital. Reason For Visit: DT,SEIZURE Physical Exam Vital Signs: Temp Pulse Resp BP Pulse Ox 99.0 F 91 15 174/85 H 95 05/07/20 07:33 05/07/20 11:23 05/07/20 11:23 05/07/20 07:33 05/07/20 11:23 Intake & Output 05/06/20 05/07/20 05/08/20 06:59 06:59 06:59 Intake Total 1123 240 Balance 1123 240 Weight 73.6 kg General appearance: PRESENT: no acute distress, cooperative Eye exam: PRESENT: nystagmus - Lateral mostly on leftward gaze but sometimes on the right gaze Neck exam: ABSENT: JVD Respiratory exam: PRESENT: clear to auscultation ara, symmetrical, unlabored. ABSENT: accessory muscle use, tachypnea, wheezes Cardiovascular exam: PRESENT: RRR, +S1, +S2. ABSENT: tachycardia GI/Abdominal exam: PRESENT: soft. ABSENT: rebound, rigid, tenderness Neurological exam: PRESENT: alert, awake, oriented to person, oriented to place, oriented to time, abnormal gait, ataxia - With gait, aphasic - Mild. ABSENT: oriented to situation Psychiatric exam: ABSENT: agitated, anxious Skin exam: PRESENT: other - Flushed skin Results Laboratory Results: 05/06/20 15:20 05/07/20 10:03 05/06/20 05/06/20 05/06/20 15:20 15:20 16:20 WBC 11.6 H RBC 4.96 Hgb 16.1 Hct 47.7 MCV 96 MCH 32.5 MCHC 33.8 RDW 13.9 Plt Count 246 Seg Neutrophils % 84.2 H Sodium 134.2 L Potassium 4.5 Chloride 100 Carbon Dioxide 16 L Anion Gap 18 BUN 9 Creatinine 1.09 Est GFR ( Amer) > 60 Glucose 108 Calcium 9.6 Magnesium 2.4 H Total Bilirubin 0.9 AST 65 H Alkaline Phosphatase 125 Total Protein 7.4 Albumin 4.6 Urine Color YELLOW Urine Appearance CLEAR Urine pH 5.0 Ur Specific [place] 1.008 Urine Protein 100 H Urine Glucose (UA) NEGATIVE Urine Ketones NEGATIVE Urine Blood SMALL H Urine Nitrite NEGATIVE Ur Leukocyte Esterase NEGATIVE Urine WBC (Auto) 2 Urine RBC (Auto) 3 05/07/20 10:03 WBC RBC Hgb Hct MCV MCH MCHC RDW Plt Count Seg Neutrophils % Sodium 133.2 L Potassium 3.5 L D Chloride 102 Carbon Dioxide 23 Anion Gap 8 BUN 9 Creatinine 0.76 Est GFR ( Amer) > 60 Glucose 106 Calcium 9.0 Magnesium 1.9 Total Bilirubin 1.8 H AST 43 Alkaline Phosphatase 105 Total Protein 6.5 Albumin 3.9 Urine Color Urine Appearance Urine pH Ur Specific [place] Urine Protein Urine Glucose (UA) Urine Ketones Urine Blood Urine Nitrite Ur Leukocyte Esterase Urine WBC (Auto) Urine RBC (Auto) 05/07/20 10:03 Creatine Kinase 322 H Impressions: Chest X-Ray 05/06/20 16:17 IMPRESSION: NO ACUTE FINDINGS. Head CT 05/06/20 22:03 IMPRESSION: No acute intracranial process is identified. Encephalomalacia from a remote event. The cause of the patient's mental status change is not identified on this examination. Assessment and Plan - Diagnosis (1) Seizure disorder Is this a current diagnosis for this admission?: Yes Plan: Has history of seizures and follows with a neurologist outpatient who has put him on Vimpat. The cause of his seizure is his left parietal encephalomalacia due to old left MCA stroke. Chronic alcoholism certainly reduces threshold if in withdrawal. I will discontinue Keppra and resume his home regimen of Vimpat We will monitor (2) Acute metabolic encephalopathy Is this a current diagnosis for this admission?: Yes Plan: Patient's brother Alonso informs me that patient typically has short postictal states of may be a few hours max. At baseline, he has some expressive aphasia from his previous stroke, drags his foot sometimes but able to walk by himself, lives alone but able to care for himself. Drinks 3 beers a day. Current encephalopathy could be due to a prolonged postictal state or acute wernicke's encephalopathy (3) Wernickes encephalopathy Is this a current diagnosis for this admission?: Yes Plan: He does have horizontal nystagmus, significantly ataxic gait and cognitive impairment. Some could be explained by his stroke but is discussing with his brother, seems to be a drastic decline acutely. I will initiate on treatment with thiamine IV 500 mg 3 times a day. Will monitor for improvement. Patient walked with physical therapy and Occupational Therapy. (4) Encephalomalacia with cerebral infarction Is this a current diagnosis for this admission?: Yes Plan: Chronic. Continue aspirin and atorvastatin daily. 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 CIWA score was 7 this morning. Lorazepam IV as needed based on CIWA score. Will monitor closely as he is at risk of recurrent seizure and DT. (6) Hypertension Qualifiers: Hypertension type: essential hypertension Qualified Code(s): I10 - Essential (primary) hypertension Is this a current diagnosis for this admission?: Yes Plan: Continue home regimen of clonidine, lisinopril, and metoprolol - Time Time Spent with patient: 15-24 minutes Anticipated Discharge Disposition: Home, Self Care Anticipated Discharge Timeframe: undetermined
[2020-05-07] MEDS: LACOSAMIDE 100 MG TABLET PO SCH ×2 (13:48→21:27)
[2020-05-07] MEDS: CLONIDINE HCL 0.2 MG TABLET PO SCH ×2 (13:48→21:26)
[2020-05-07] MEDS ORDERED: LISINOPRIL 10 MG TABLET PO ONE (14:00)
--- NOTE | 2020-05-07 15:18 | RADIOLOGY REPORT (SQ) ---
EXAM DESCRIPTION: HIP LEFT AP/LATERAL IMAGES COMPLETED DATE/TIME: 05/07/2020 3:01 pm REASON FOR STUDY: Pain COMPARISON: None. NUMBER OF VIEWS: Two views. TECHNIQUE: AP pelvis and additional frog legview of the left hip. LIMITATIONS: None. FINDINGS: MINERALIZATION: Normal. LEFT HIP: No fracture or dislocation. No worrisome bone lesions. No contour deformity. No joint spa ce narrowing. RIGHT HIP: No fracture or dislocation. No worrisome bone lesions. Limited views. PUBIS AND ISCHIUM: No fracture. PELVIS: No fracture. SACRUM: No fracture or dislocation. No worrisome bone lesions. LOWER LUMBAR SPINE: No fracture or dislocation. No worrisome bone lesions. No significant disc disea se. SOFT TISSUES: No findings. OTHER: No other significant finding. IMPRESSION: NEGATIVE STUDY OF THE LEFT HIP AND PELVIS. NO EXPLANATION FOR PAIN. TECHNICAL DOCUMENTATION: JOB ID: [id number] 2010 [employer]- All Rights Reserved Reading location - IP/workstation name: [email or web address]
[2020-05-07] MEDS: THIAMINE HCL 500 MG in NORMAL SALINE 250 ML IV SCH ×2 (15:34→21:41)
[2020-05-07] MEDS: LORAZEPAM INJ 2 MG/1 ML VIAL IV PRN ×2 (15:34→21:27)
[2020-05-07] MEDS: ATORVASTATIN CALCIUM 40 MG TABLET PO SCH (21:27)
[2020-05-07] MEDS: METOPROLOL TARTRATE 50 MG TABLET PO SCH (21:52)
[2020-05-07] MEDS ORDERED: ATORVASTATIN CALCIUM 40 MG TABLET PO SCH (22:00)
[2020-05-08 05:32] LABS: ABSOLUTE BASOPHILS # (AUTO) 0.1 10^3/uL (0.0-0.2); ABSOLUTE EOSINOPHILS # (AUTO) 0.1 10^3/uL (0.0-0.6); ABSOLUTE LYMPHOCYTES (AUTO) 1.2 10^3/uL (0.5-4.7); ABSOLUTE MONOCYTES (AUTO) 0.5 10^3/uL (0.1-1.4); ABSOLUTE NEUT (AUTO) 4.3 10^3/uL (1.7-8.2); BASOPHILS % (AUTO) 0.9 % (0-2); EOSINOPHILS % (AUTO) 1.5 % (0-6); HEMATOCRIT 33.4 % (37.9-51.0); LYMPHOCYTES % (AUTO) 19.3 % (13-45); MEAN CORPUSCULAR HEMOGLOBIN 33.2 pg (27.0-33.4); MEAN CORPUSCULAR HGB CONC 35.3 g/dL (32.0-36.0); MEAN CORPUSCULAR VOLUME 94 fl (80-97); MONOCYTES % (AUTO) 7.8 % (3-13); PLATELET COUNT 130 10^3/uL (150-450); RED BLOOD COUNT 3.55 10^6/uL (4.35-5.55); RED CELL DISTRIBUTION WIDTH 13.3 % (11.5-14.0); SEGMENTED NEUTROPHILS % (AUTO) 70.5 % (42-78); TOTAL CELLS COUNTED % (AUTO) 100 %; WHITE BLOOD COUNT 6.1 10^3/uL (4.0-10.5)
[2020-05-08 05:33] LABS: HEMOGLOBIN 11.8 g/dL (13.5-17.0)
[2020-05-08 05:40] LABS: INTERNATIONAL RATION (INR) 0.96
[2020-05-08 06:04] LABS: ALBUMIN 3.1 g/dL (3.5-5.0); ALKALINE PHOSPHATASE 75 U/L (38-126); ANION GAP 6 (5-19); ASPARTATE AMINO TRANSFERASE 33 U/L (17-59); BILIRUBIN,DIRECT 0.5 mg/dL (0.0-0.4); BLOOD UREA NITROGEN 10 mg/dL (7-20); CALCIUM 8.6 mg/dL (8.4-10.2); CARBON DIOXIDE 25 mmol/L (22-30); CHLORIDE 105 mmol/L (98-107); GLUCOSE 94 mg/dL (75-110); PHOSPHORUS 3.1 mg/dL (2.5-4.5); POTASSIUM 3.6 mmol/L (3.6-5.0); TOTAL PROTEIN 5.4 g/dL (6.3-8.2)
[2020-05-08 06:17] LABS: FREE T4 (FREE THYROXINE) 1.18 ng/dL (0.78-2.19)
[2020-05-08] MEDS: THIAMINE HCL 500 MG in NORMAL SALINE 250 ML IV SCH ×3 (06:19→22:49)
[2020-05-08 06:30] LABS: THYROID STIMULATING HORMONE 1.37 uIU/mL (0.47-4.68)
[2020-05-08] MEDS: DEXTROSE 5%-NORMAL SALINE 1,000 ML IV PRN ×2 (06:45→22:32)
[2020-05-08] MEDS: CLONIDINE HCL 0.2 MG TABLET PO SCH ×2 (09:10→22:34)
[2020-05-08] MEDS: ASPIRIN 81 MG TABLET, CHEWABLE PO SCH (09:10)
[2020-05-08] MEDS: FAMOTIDINE INJ/PF 20 MG/2 ML SDV IV SCH ×2 (09:10→22:34)
[2020-05-08] MEDS: LACOSAMIDE 100 MG TABLET PO SCH ×2 (09:11→22:33)
[2020-05-08] MEDS: CYANOCOBALAMIN (VITAMIN B-12) 1,000 MCG TABLET PO SCH (09:11)
[2020-05-08] MEDS: CHOLECALCIFEROL (D3) 1,000 UNIT (25 MCG) TABLET PO SCH (09:11)
[2020-05-08] MEDS: METOPROLOL TARTRATE 50 MG TABLET PO SCH ×2 (09:11→22:34)
[2020-05-08] MEDS: LISINOPRIL 10 MG TABLET PO SCH (09:11)
[2020-05-08] MEDS: FOLIC ACID 1 MG TABLET PO SCH (09:11)
[2020-05-08] MEDS: CITALOPRAM HYDROBROMIDE 20 MG TABLET PO SCH (09:11)
[2020-05-08] MEDS: ENOXAPARIN SODIUM INJ 40 MG/0.4 ML DISP.SYRIN SUBCUT SCH (09:18)
[2020-05-08] MEDS: LIDOCAINE 5% (700 MG) TRANSDERMAL ADH..PATCH TP SCH (11:53)
--- NOTE | 2020-05-08 15:52 | PDOC PROGRESS REPORT ---
Subjective Progress Note for:: 05/08/20 Subjective:: Patient got little agitated this morning. My assessment seems to not be as confused as he was yesterday actually though nurse notifies me that he tugs on everything. He denies any shortness of breath or chest pain. Continues to have pain in his left hip Reason For Visit: DT,SEIZURE Physical Exam Vital Signs: Temp Pulse Resp BP Pulse Ox 98.3 F 65 18 154/81 H 97 05/08/20 10:00 05/08/20 07:12 05/08/20 07:12 05/08/20 07:12 05/08/20 07:12 Intake & Output 05/07/20 05/08/20 05/09/20 06:59 06:59 06:59 Intake Total 1123 3205 485 Balance 1123 3205 485 Weight 73.6 kg 73.3 kg General appearance: PRESENT: no acute distress, cooperative Neck exam: ABSENT: JVD Respiratory exam: PRESENT: unlabored. ABSENT: wheezes Cardiovascular exam: PRESENT: RRR. ABSENT: tachycardia Neurological exam: PRESENT: alert, awake, oriented to person, oriented to place, aphasic. ABSENT: oriented to time, oriented to situation Psychiatric exam: ABSENT: agitated Results Laboratory Results: 05/08/20 05:19 05/08/20 05:19 05/08/20 05/08/20 05/08/20 05:19 05:19 05:19 WBC 6.1 RBC 3.55 L Hgb 11.8 L D Hct 33.4 L MCV 94 MCH 33.2 MCHC 35.3 RDW 13.3 Plt Count 130 L Seg Neutrophils % 70.5 Sodium 135.5 L Potassium 3.6 Chloride 105 Carbon Dioxide 25 Anion Gap 6 BUN 10 Creatinine 0.78 Est GFR ( Amer) > 60 Glucose 94 Calcium 8.6 Phosphorus 3.1 Total Bilirubin 2.0 H AST 33 Alkaline Phosphatase 75 Ammonia < 8.7 L Total Protein 5.4 L Albumin 3.1 L TSH Free T4 05/08/20 05:19 WBC RBC Hgb Hct MCV MCH MCHC RDW Plt Count Seg Neutrophils % Sodium Potassium Chloride Carbon Dioxide Anion Gap BUN Creatinine Est GFR ( Amer) Glucose Calcium Phosphorus Total Bilirubin AST Alkaline Phosphatase Ammonia Total Protein Albumin TSH 1.37 Free T4 1.18 05/07/20 10:03 Creatine Kinase 322 H Impressions: Chest X-Ray 05/06/20 16:17 IMPRESSION: NO ACUTE FINDINGS. Head CT 05/06/20 22:03 IMPRESSION: No acute intracranial process is identified. Encephalomalacia from a remote event. The cause of the patient's mental status change is not identified on this examination. Hip X-Ray 05/07/20 14:02 IMPRESSION: NEGATIVE STUDY OF THE LEFT HIP AND PELVIS. NO EXPLANATION FOR PAIN. Assessment and Plan - Diagnosis (1) Seizure disorder Is this a current diagnosis for this admission?: Yes Plan: Has history of seizures and follows with a neurologist outpatient who has put him on Vimpat. The cause of his seizure is his left parietal encephalomalacia due to old left MCA stroke. Chronic alcoholism certainly reduces threshold if in withdrawal. Continue his home regimen of Vimpat (2) Acute metabolic encephalopathy Is this a current diagnosis for this admission?: Yes Plan: Patient's brother Alonso informs me that patient typically has short postictal states of may be a few hours max. At baseline, he has some expressive aphasia from his previous stroke, drags his foot sometimes but able to walk by himself, lives alone but able to care for himself. Drinks 3 beers a day. Current encephalopathy could be due to acute wernicke's encephalopathy (3) Wernickes encephalopathy Is this a current diagnosis for this admission?: Yes Plan: He does have horizontal nystagmus, significantly ataxic gait and cognitive impairment. Some could be explained by his stroke but is discussing with his brother, seems to be a drastic decline acutely. Continue thiamine IV 500 mg 3 times a day. Will monitor for improvement. Physical therapy and Occupational Therapy. (4) Encephalomalacia with cerebral infarction Is this a current diagnosis for this admission?: Yes Plan: Chronic. Continue aspirin and atorvastatin daily. 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 CIWA score was 8 this morning. Lorazepam IV as needed based on CIWA score. Will monitor closely as he is at risk of recurrent seizure and DT. So far, he has only required Ativan once. (6) Hypertension Qualifiers: Hypertension type: essential hypertension Qualified Code(s): I10 - Essential (primary) hypertension Is this a current diagnosis for this admission?: Yes Plan: Continue home regimen of clonidine, lisinopril, and metoprolol - Time Time Spent with patient: Less than 15 minutes Anticipated Discharge Disposition: Shelter Facility Anticipated Discharge Timeframe: within 72 hours
[2020-05-08] MEDS: ATORVASTATIN CALCIUM 40 MG TABLET PO SCH (22:33)
[2020-05-09] MEDS: ACETAMINOPHEN 325 MG TABLET PO PRN ×2 (04:54→21:13)
[2020-05-09] MEDS: THIAMINE HCL 500 MG in NORMAL SALINE 250 ML IV SCH ×3 (06:32→21:10)
[2020-05-09] MEDS: ASPIRIN 81 MG TABLET, CHEWABLE PO SCH (09:07)
[2020-05-09] MEDS: FOLIC ACID 1 MG TABLET PO SCH (09:07)
[2020-05-09] MEDS: ENOXAPARIN SODIUM INJ 40 MG/0.4 ML DISP.SYRIN SUBCUT SCH (09:08)
[2020-05-09] MEDS: LISINOPRIL 10 MG TABLET PO SCH (09:08)
[2020-05-09] MEDS: CITALOPRAM HYDROBROMIDE 20 MG TABLET PO SCH (09:08)
[2020-05-09] MEDS: CHOLECALCIFEROL (D3) 1,000 UNIT (25 MCG) TABLET PO SCH (09:08)
[2020-05-09] MEDS: LACOSAMIDE 100 MG TABLET PO SCH ×2 (09:08→21:10)
[2020-05-09] MEDS: FAMOTIDINE INJ/PF 20 MG/2 ML SDV IV SCH ×2 (09:08→21:09)
[2020-05-09] MEDS: CYANOCOBALAMIN (VITAMIN B-12) 1,000 MCG TABLET PO SCH (09:08)
[2020-05-09] MEDS: METOPROLOL TARTRATE 50 MG TABLET PO SCH ×2 (09:08→21:10)
--- NOTE | 2020-05-09 12:51 | PDOC PROGRESS REPORT ---
Subjective Progress Note for:: 05/09/20 Subjective:: Patient is feeling better today. His mental status is a lot much better. CIWA scores have remained low. Has not had any recurrence of seizure. Reason For Visit: DT,SEIZURE Physical Exam Vital Signs: Temp Pulse Resp BP Pulse Ox 97.9 F 54 L 14 155/78 H 98 05/09/20 08:46 05/09/20 08:11 05/09/20 08:11 05/09/20 08:11 05/09/20 08:11 Intake & Output 05/08/20 05/09/20 05/10/20 06:59 06:59 06:59 Intake Total 3205 2517 255 Output Total 950 Balance 3205 1567 255 Weight 73.3 kg 75.1 kg General appearance: PRESENT: no acute distress, cooperative Neck exam: ABSENT: JVD Respiratory exam: PRESENT: symmetrical, unlabored. ABSENT: tachypnea, wheezes Cardiovascular exam: PRESENT: +S1, +S2 Extremities exam: PRESENT: other - No tremors noted Neurological exam: PRESENT: alert, awake, oriented to person, oriented to place, oriented to time, other - Conversational Psychiatric exam: ABSENT: agitated, anxious Results Laboratory Results: 05/08/20 05:19 05/08/20 05:19 05/07/20 10:03 Creatine Kinase 322 H Impressions: Chest X-Ray 05/06/20 16:17 IMPRESSION: NO ACUTE FINDINGS. Head CT 05/06/20 22:03 IMPRESSION: No acute intracranial process is identified. Encephalomalacia from a remote event. The cause of the patient's mental status change is not identified on this examination. Hip X-Ray 05/07/20 14:02 IMPRESSION: NEGATIVE STUDY OF THE LEFT HIP AND PELVIS. NO EXPLANATION FOR PAIN. Assessment and Plan - Diagnosis (1) Seizure disorder Is this a current diagnosis for this admission?: Yes Plan: Has history of seizures and follows with a neurologist outpatient who has put him on Vimpat. The cause of his seizure is his left parietal encephalomalacia due to old left MCA stroke. Chronic alcoholism certainly reduces threshold if in withdrawal. Continue his home regimen of Vimpat (2) Acute metabolic encephalopathy Is this a current diagnosis for this admission?: Yes Plan: Patient's brother Alonso informs me that patient typically has short postictal states of may be a few hours max. At baseline, he has some expressive aphasia f rom his previous stroke, drags his foot sometimes but able to walk by himself, lives alone but able to care for himself. Drinks 3 beers a day. Current encephalopathy could be due to acute wernicke's encephalopathy (3) Wernickes encephalopathy Is this a current diagnosis for this admission?: Yes Plan: Much better today. Continue thiamine IV 500 mg 3 times a day for 1 more day. I will have physical therapy work with him today so we can plan for disposition at this point (4) Encephalomalacia with cerebral infarction Is this a current diagnosis for this admission?: Yes Plan: Chronic. Continue aspirin and atorvastatin daily. 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 CIWA score was 1 this morning. Lorazepam IV as needed based on CIWA score. Will monitor closely as he is at risk of recurrent seizure and DT. So far, he has only required Ativan once. (6) Hypertension Qualifiers: Hypertension type: essential hypertension Qualified Code(s): I10 - Essential (primary) hypertension Is this a current diagnosis for this admission?: Yes Plan: Continue home regimen of clonidine, lisinopril, and metoprolol - Time Time Spent with patient: Less than 15 minutes Anticipated Discharge Disposition: Unclear if SNF versus home health. Pending PT eval today Anticipated Discharge Timeframe: within 36 hours
[2020-05-09] MEDS: LIDOCAINE 5% (700 MG) TRANSDERMAL ADH..PATCH TP SCH (13:47)
[2020-05-09] MEDS: CLONIDINE HCL 0.2 MG TABLET PO SCH ×2 (13:53→22:00)
[2020-05-09] MEDS: HYDROCHLOROTHIAZIDE 25 MG TABLET PO SCH (18:15)
[2020-05-09] MEDS: ATORVASTATIN CALCIUM 40 MG TABLET PO SCH (21:10)
[2020-05-10] MEDS: ACETAMINOPHEN 325 MG TABLET PO PRN (03:36)
[2020-05-10] MEDS: THIAMINE HCL 500 MG in NORMAL SALINE 250 ML IV SCH (05:04)
[2020-05-10] MEDS: CLONIDINE HCL 0.2 MG TABLET PO SCH (05:05)
[2020-05-10] MEDS: FAMOTIDINE INJ/PF 20 MG/2 ML SDV IV SCH (09:32)
[2020-05-10] MEDS: CITALOPRAM HYDROBROMIDE 20 MG TABLET PO SCH (09:33)
[2020-05-10] MEDS: LACOSAMIDE 100 MG TABLET PO SCH (09:33)
[2020-05-10] MEDS: CYANOCOBALAMIN (VITAMIN B-12) 1,000 MCG TABLET PO SCH (09:33)
[2020-05-10] MEDS: ASPIRIN 81 MG TABLET, CHEWABLE PO SCH (09:33)
[2020-05-10] MEDS: HYDROCHLOROTHIAZIDE 25 MG TABLET PO SCH (09:33)
[2020-05-10] MEDS: CHOLECALCIFEROL (D3) 1,000 UNIT (25 MCG) TABLET PO SCH (09:34)
[2020-05-10] MEDS: FOLIC ACID 1 MG TABLET PO SCH (09:34)
[2020-05-10] MEDS: METOPROLOL TARTRATE 50 MG TABLET PO SCH (09:34)
[2020-05-10] MEDS: LISINOPRIL 10 MG TABLET PO SCH (09:34)
[2020-05-10] MEDS: LIDOCAINE 5% (700 MG) TRANSDERMAL ADH..PATCH TP SCH (09:35)
[2020-05-10] MEDS: ENOXAPARIN SODIUM INJ 40 MG/0.4 ML DISP.SYRIN SUBCUT SCH (09:39)
--- NOTE | 2020-05-10 11:11 | PDOC DISCHARGE SUMMARY ---
Impression - Admit/DC Date/PCP Admission Date/Primary Care Provider: 05/06/20 22:15 ACE YU PA-C Discharge Date: 05/10/20 - Discharge Diagnosis (1) Seizure disorder Is this a current diagnosis for this admission?: Yes (2) Wernickes encephalopathy Is this a current diagnosis for this admission?: Yes (3) Acute metabolic encephalopathy Is this a current diagnosis for this admission?: Yes (4) Encephalomalacia with cerebral infarction Is this a current diagnosis for this admission?: Yes (5) Alcohol withdrawal Is this a current diagnosis for this admission?: Yes (6) Hypertension Is this a current diagnosis for this admission?: Yes - Additional Information Discharge Diet: Cardiac Discharge Activity: Activity As Tolerated Referrals: ACE YU PA-C [Primary Care Provider] - Follow up as needed Prescriptions: Folic Acid [Folvite 1 mg Tablet] 1 mg PO DAILY #30 tablet Thiamine HCl [Thiamine HCl Inj 200 mg/2 ml Vial] 200 mg IM DAILY 4 Days #4 vial Lacosamide [Vimpat 100 mg Tablet] 100 mg PO Q12 #60 Thiamine HCl [Vitamin B-1] 100 mg PO DAILY #30 tablet Home Medications: Atorvastatin Calcium [Lipitor 40 mg Tablet] 40 mg PO QHS 10/20/17 Citalopram Hydrobromide [Citalopram HBr] 40 mg PO DAILY 10/20/17 Clonidine HCl 0.2 mg PO Q12 10/20/17 Hydrochlorothiazide [Hydrodiuril 25 mg Tablet] 25 mg PO QAM 05/07/20 Lisinopril [Zestril] 40 mg PO DAILY 05/07/20 Metoprolol Tartrate [Lopressor 50 mg Tablet] 50 mg PO Q12 05/07/20 Aspirin [Aspirin 81 mg Chewable Tablet] 81 mg PO DAILY tab.chew 05/10/20 Folic Acid [Folvite 1 mg Tablet] 1 mg PO DAILY #30 tablet 05/10/20 Lacosamide [Vimpat 100 mg Tablet] 100 mg PO Q12 #60 05/10/20 Thiamine HCl [Thiamine HCl Inj 200 mg/2 ml Vial] 200 mg IM DAILY 4 Days #4 vial 05/10/20 Thiamine HCl [Vitamin B-1] 100 mg PO DAILY #30 tablet 05/10/20 History of Present Illiness History of Present Illness: According to admitting provider: ACE DASILVA is a 60 year old male past medical history of CVA, seizure disorder and etoch disorder. Source of history is ED physician and chart review as patient does not provide any history due to mental status. He was was having dinner at [facility] when he was noted to become confused helped to the ground and noted to have seizure-like activity, EMS was called, patient was noted to be postictal, had not sustained any injury, has not had any urinary or bowel incontinence, he did appear to be confused. As per ED physician patient has history of alcohol abuse and his last alcohol intake was 2 days ago. Patient was going to be discharged but was observed to be developing symptoms of alcohol withdrawal, patient was started on banana bag and and IV benzodiazepines and hospitalist was consulted for admission. On my encounter patient is laying in bed, seems to be very lethargic however easily arousable, but not alert and oriented to person place and time, patient does move all extremities unfortunately does not follow any command, when asked for his name he just mumbles unintelligible words. He does not appear to be in any acute distress. Patient is supposed to be on Keppra for his seizure disorder on medication review patient does not appear to be on any seizure medications. Hospital Course Hospital Course: Seizure disorder Is this a current diagnosis for this admission?: Yes Plan: Initially presented following a seizure. Has history of seizures and follows with a neurologist outpatient who has put him on Vimpat. The cause of his seizure is his left parietal encephalomalacia due to old left MCA stroke. Chronic alcoholism certainly has reduced threshold if in withdrawal. No recurrence of seizure during hospitalization. Counseled on alcohol cessation. Continue Vimpat and follow-up with neurologist Acute Wernickes encephalopathy Is this a current diagnosis for this admission?: Yes Plan: Able enough the patient was out of his postictal phase, he exhibited symptoms and signs characteristic of Wernicke's encephalopathy with significant confusion, metabolic encephalopathy, horizontal nystagmus and significant ataxia. He was started on treatment with IV thiamine 500 mg 3 times a day and received this for 3 days. Received a dose of 500 mg once today. Patient encephalopathy has resolved. His nystagmus also resolved and his ataxia is a lot better. Patient's nurse and I together had patient ambulate the hallways with a front wheel walker today without needing any assistance from us. Patient was able to ambulate the entire hallway and back going over 200 feet with a front wheeled walker. Discussed with patient's brother who will be willing to have patient stay with him for the next few weeks. Patient will be set up with home health and be discharged with a front wheel walker. He will be continued on IM thiamine 200 mg daily for the next 4 days and 100 mg p.o. thiamine daily. Encephalomalacia with cerebral infarction Is this a current diagnosis for this admission?: Yes Plan: Chronic. Continue aspirin and atorvastatin daily. Alcohol withdrawal Qualifiers: Complication of substance-induced condition: with perceptual disturbance Qualified Code(s): F10.232 - Alcohol dependence with withdrawal with perceptual disturbance Is this a current diagnosis for this admission?: Yes Plan: Only had minimal withdrawal while in the hospital has only required Ativan once. In the past 2 days patient's fevers have been 0-1 and has not required any medication therapy for this. At this point he is not actively withdrawing. Hypertension Qualifiers: Hypertension type: essential hypertension Qualified Code(s): I10 - Essential (primary) hypertension Is this a current diagnosis for this admission?: Yes Plan: Continue home regimen Physical Exam Vital Signs: Temp Pulse Resp BP Pulse Ox 97.8 F 50 L 16 166/87 H 99 05/10/20 08:25 05/10/20 07:41 05/10/20 07:41 05/10/20 07:41 05/10/20 07:41 Intake & Output 05/09/20 05/10/20 05/11/20 06:59 06:59 06:59 Intake Total 2517 3682 Output Total 950 2800 Balance 1567 882 Weight 75.1 kg 73.4 kg General appearance: PRESENT: no acute distress, cooperative Eye exam: ABSENT: nystagmus Neck exam: ABSENT: JVD Respiratory exam: PRESENT: clear to auscultation ara, symmetrical, unlabored. ABSENT: accessory muscle use, tachypnea, wheezes Cardiovascular exam: PRESENT: RRR, +S1, +S2. ABSENT: tachycardia GI/Abdominal exam: PRESENT: soft. ABSENT: rebound, rigid, tenderness Musculoskeletal exam: PRESENT: ambulatory Neurological exam: PRESENT: alert, awake, oriented to person, oriented to place, oriented to time, oriented to situation, other - NONTREMULOUS Psychiatric exam: ABSENT: agitated, anxious Results Laboratory Results: WBC 6.1 10^3/uL (4.0-10.5) 05/08/20 05:19 RBC 3.55 10^6/uL (4.35-5.55) L 05/08/20 05:19 Hgb 11.8 g/dL (13.5-17.0) L D 05/08/20 05:19 Hct 33.4 % (37.9-51.0) L 05/08/20 05:19 MCV 94 fl (80-97) 05/08/20 05:19 MCH 33.2 pg (27.0-33.4) 05/08/20 05:19 MCHC 35.3 g/dL (32.0-36.0) 05/08/20 05:19 RDW 13.3 % (11.5-14.0) 05/08/20 05:19 Plt Count 130 10^3/uL (150-450) L 05/08/20 05:19 Lymph % (Auto) 19.3 % (13-45) 05/08/20 05:19 Wayne % (Auto) 7.8 % (3-13) 05/08/20 05:19 Eos % (Auto) 1.5 % (0-6) 05/08/20 05:19 Baso % (Auto) 0.9 % (0-2) 05/08/20 05:19 Absolute Neuts (auto) 4.3 10^3/uL (1.7-8.2) 05/08/20 05:19 Absolute Lymphs (auto) 1.2 10^3/uL (0.5-4.7) 05/08/20 05:19 Absolute Monos (auto) 0.5 10^3/uL (0.1-1.4) 05/08/20 05:19 Absolute Eos (auto) 0.1 10^3/uL (0.0-0.6) 05/08/20 05:19 Absolute Basos (auto) 0.1 10^3/uL (0.0-0.2) 05/08/20 05:19 Seg Neutrophils % 70.5 % (42-78) 05/08/20 05:19 PT 13.0 SEC (11.4-15.4) 05/08/20 05:19 INR 0.96 05/08/20 05:19 Sodium 135.5 mmol/L (137-145) L 05/08/20 05:19 Potassium 3.6 mmol/L (3.6-5.0) 05/08/20 05:19 Chloride 105 mmol/L (98-107) 05/08/20 05:19 Carbon Dioxide 25 mmol/L (22-30) 05/08/20 05:19 Anion Gap 6 (5-19) 05/08/20 05:19 BUN 10 mg/dL (7-20) 05/08/20 05:19 Creatinine 0.78 mg/dL (0.52-1.25) 05/08/20 05:19 Est GFR ( Amer) > 60 (>60) 05/08/20 05:19 Est GFR (MDRD) Non-Af > 60 (>60) 05/08/20 05:19 Glucose 94 mg/dL (75-110) 05/08/20 05:19 POC Glucose 108 mg/dL (70-110) 05/06/20 15:25 Calcium 8.6 mg/dL (8.4-10.2) 05/08/20 05:19 Phosphorus 3.1 mg/dL (2.5-4.5) 05/08/20 05:19 Magnesium 1.9 mg/dL (1.6-2.3) 05/07/20 10:03 Total Bilirubin 2.0 mg/dL (0.2-1.3) H 05/08/20 05:19 Direct Bilirubin 0.5 mg/dL (0.0-0.4) H 05/08/20 05:19 Neonat Total Bilirubin Not Reportable 05/08/20 05:19 Neonat Direct Bilirubin Not Reportable 05/08/20 05:19 Neonat Indirect Bili Not Reportable 05/08/20 05:19 AST 33 U/L (17-59) 05/08/20 05:19 ALT 28 U/L (<50) 05/08/20 05:19 Alkaline Phosphatase 75 U/L (38-126) 05/08/20 05:19 Ammonia < 8.7 umol/L (9-33) L 05/08/20 05:19 Creatine Kinase 322 U/L (55-170) H 05/07/20 10:03 Total Protein 5.4 g/dL (6.3-8.2) L 05/08/20 05:19 Albumin 3.1 g/dL (3.5-5.0) L 05/08/20 05:19 TSH 1.37 uIU/mL (0.47-4.68) 05/08/20 05:19 Free T4 1.18 ng/dL (0.78-2.19) 05/08/20 05:19 Urine Color YELLOW 05/06/20 16:20 Urine Appearance CLEAR 05/06/20 16:20 Urine pH 5.0 (5.0-9.0) 05/06/20 16:20 Ur Specific Coy 1.008 05/06/20 16:20 Urine Protein 100 mg/dL (NEGATIVE) H 05/06/20 16:20 Urine Glucose (UA) NEGATIVE mg/dL (NEGATIVE) 05/06/20 16:20 Urine Ketones NEGATIVE mg/dL (NEGATIVE) 05/06/20 16:20 Urine Blood SMALL (NEGATIVE) H 05/06/20 16:20 Urine Nitrite NEGATIVE (NEGATIVE) 05/06/20 16:20 Urine Bilirubin NEGATIVE (NEGATIVE) 05/06/20 16:20 Urine Urobilinogen NEGATIVE mg/dL (<2.0) 05/06/20 16:20 Ur Leukocyte Esterase NEGATIVE (NEGATIVE) 05/06/20 16:20 Urine WBC (Auto) 2 /HPF 05/06/20 16:20 Urine RBC (Auto) 3 /HPF 05/06/20 16:20 Urine Bacteria (Auto) 1+ /HPF 05/06/20 16:20 Urine Mucus (Auto) RARE /LPF 05/06/20 16:20 Urine Ascorbic Acid NEGATIVE (NEGATIVE) 05/06/20 16:20 Urine Opiates Screen NEGATIVE 05/06/20 16:20 Urine Methadone Screen NEGATIVE 05/06/20 16:20 Ur Barbiturates Screen NEGATIVE 05/06/20 16:20 Levetiracetam 10.0 ug/mL (10.0-40.0) 05/07/20 05:48 Ur Phencyclidine Scrn NEGATIVE 05/06/20 16:20 Ur Amphetamines Screen NEGATIVE 05/06/20 16:20 U Benzodiazepines Scrn NEGATIVE 05/06/20 16:20 Urine Cocaine Screen NEGATIVE 05/06/20 16:20 U Marijuana (THC) Screen NEGATIVE 05/06/20 16:20 Serum Alcohol < 10 mg/dL (NONE DETECTED) 05/06/20 15:20 Impressions: Chest X-Ray 05/06/20 16:17 IMPRESSION: NO ACUTE FINDINGS. Head CT 05/06/20 22:03 IMPRESSION: No acute intracranial process is identified. Encephalomalacia from a remote event. The cause of the patient's mental status change is not identified on this examination. Hip X-Ray 05/07/20 14:02 IMPRESSION: NEGATIVE STUDY OF THE LEFT HIP AND PELVIS. NO EXPLANATION FOR PAIN. Plan Time Spent: Greater than 30 Minutes Stroke Is this a Stroke Patient?: Yes Stroke Pt being discharged on Anti-thrombolytic therapy?: Yes Stroke Pt being discharged on Anti-coagulation therapy?: No Reason(s) for not prescribing Anti-coagulation therapy:: Not indicated Stroke Pt being discharged on Statins?: Yes Acute Heart Failure Is this a Heart Failure Patient?: No
[2020-05-10 12:20] VITALS: BP 170/85
[2020-05-11] MEDS ORDERED: THIAMINE HCL 250 MG in NORMAL SALINE 250 ML IV SCH (10:00)
== END 2020-05-10 12:54 | disposition home health service (06) | DRG 100 ==
LOC: ER 15:05 → EH 22:15 → 3W 05-07 01:00
PROVIDERS: ADMIT Internal Medicine; ATTEND Internal Medicine
DX: G40.909 Epilepsy, unspecified, not intractable, without status epilepticus (principal); G93.41 Metabolic encephalopathy; F10.231 Alcohol dependence with withdrawal delirium; E51.2 Wernicke's encephalopathy; F10.232 Alcohol dependence with withdrawal with perceptual disturbance; I10 Essential (primary) hypertension; I69.398 Other sequelae of cerebral infarction; G93.89 Other specified disorders of brain; F17.210 Nicotine dependence, cigarettes, uncomplicated
CPT/HCPCS: 36415; 70450; 71045; 80053; 80177; 80307; 81001; 82140; 82550; 82962; 83735; 84100; 84439; 84443; 85025; 85610; 96365; 96367; 96375; 99285; J0360; J1650; J1953; J2060; J3360; J3411; J3475; J3480; J3490; J7030; J7042; J7050; S0028

== ENCOUNTER 2020-07-10 10:21 | Emergency (ER) | payer MEDICARE, BC, OTHER ==
[2020-07-10 10:46] LABS: ABSOLUTE BASOPHILS # (AUTO) 0.1 10^3/uL (0.0-0.2); ABSOLUTE EOSINOPHILS # (AUTO) 0.3 10^3/uL (0.0-0.6); ABSOLUTE MONOCYTES (AUTO) 0.9 10^3/uL (0.1-1.4); ABSOLUTE NEUT (AUTO) 5.9 10^3/uL (1.7-8.2); BASOPHILS % (AUTO) 0.6 % (0-2); EOSINOPHILS % (AUTO) 3.1 % (0-6); HEMATOCRIT 51.9 % (37.9-51.0); HEMOGLOBIN 16.6 g/dL (13.5-17.0); LYMPHOCYTES % (AUTO) 35.6 % (13-45); MEAN CORPUSCULAR HEMOGLOBIN 31.3 pg (27.0-33.4); MEAN CORPUSCULAR VOLUME 98 fl (80-97); PLATELET COUNT 335 10^3/uL (150-450); RED BLOOD COUNT 5.32 10^6/uL (4.35-5.55); RED CELL DISTRIBUTION WIDTH 13.4 % (11.5-14.0); SEGMENTED NEUTROPHILS % (AUTO) 52.7 % (42-78); TOTAL CELLS COUNTED % (AUTO) 100 %; WHITE BLOOD COUNT 11.2 10^3/uL (4.0-10.5)
[2020-07-10 11:01] LABS: ALBUMIN 5.5 g/dL (3.5-5.0); ALKALINE PHOSPHATASE 149 U/L (38-126); ASPARTATE AMINO TRANSFERASE 45 U/L (17-59); BILIRUBIN,DIRECT 0.1 mg/dL (0.0-0.4); BILIRUBIN,TOTAL 0.7 mg/dL (0.2-1.3); BLOOD UREA NITROGEN 13 mg/dL (7-20); CALCIUM 10.9 mg/dL (8.4-10.2); CHLORIDE 101 mmol/L (98-107); GLUCOSE 112 mg/dL (75-110); POTASSIUM 4.3 mmol/L (3.6-5.0); TOTAL PROTEIN 9.3 g/dL (6.3-8.2)
[2020-07-10 11:04] LABS: ALCOHOL < 10 mg/dL (NONE DETECTED)
[2020-07-10 11:18] LABS: ANION GAP 33 (5-19)
[2020-07-10 11:21] LABS: CARBON DIOXIDE 9 mmol/L (22-30)
[2020-07-10] MEDS ORDERED: NORMAL SALINE 1000 ML 1,000 ML IV ONE ×2 (11:42→12:43)
[2020-07-10 13:15] LABS: APPEARANCE,URINE SLIGHTLY-CLOUDY; BILIRUBIN,URINE NEGATIVE (NEGATIVE); COLOR,URINE YELLOW; GLUCOSE, URINE NEGATIVE (NEGATIVE); KETONES,URINE NEGATIVE (NEGATIVE); LEUKOCYTE ESTERASE,URINE NEGATIVE (NEGATIVE); NITRITE,URINE NEGATIVE (NEGATIVE); PROTEIN,URINE 100 mg/dL (NEGATIVE); URINE SPECIFIC GRAVITY 1.014; UROBILINOGEN,URINE NEGATIVE mg/dL (<2.0)
--- NOTE | 2020-07-10 13:16 | ER Document Report ---
ED General - General Chief Complaint: Probable Seizure Stated Complaint: POSSIBLE SEIZURE Time Seen by Provider: 07/10/20 11:41 Primary Care Provider: ACE YU PA-C [Primary Care Provider] - Follow up as needed TRAVEL OUTSIDE OF THE [place] IN LAST 30 DAYS: No - HPI Notes: Patient is a 60-year-old male with a history of encephalopathy, CVA, seizure disorder, who presents the emergency department for evaluation after a seizure. The patient evidently had some tonic-clonic type movement in his legs, it progressed to generalized tonic-clonic seizure. He has not had a seizure in the last 6 weeks. He was actually seen by his neurologist last week in follow-up, was found to be stable and actually improving. He has stopped drinking alcohol. He is taking his medications as prescribed, exercising regularly, at this point has no acute complaints or concerns. He denies biting his tongue. He denies any incontinence. He currently has a friend living with him. He does not drive. - Related Data Allergies/Adverse Reactions: No Known Allergies Allergy (Verified 07/10/20 11:15) Home Medications: Atorvastatin, Celexa, clonidine, HCTZ, lisinopril, metoprolol, aspirin, folate, Vimpat, thiamine Past Medical History - General Information source: Patient - Social History Smoking Status: Former Smoker Family History: Reviewed & Not Pertinent - Past Medical History Cardiac Medical History: Reports: Hx Hypertension Denies: Hx Coronary Artery Disease, Hx Heart Attack Pulmonary Medical History: Denies: Hx Asthma, Hx Bronchitis, Hx COPD, Hx Pneumonia Neurological Medical History: Reports: Hx Cerebrovascular Accident, Hx Seizures, Other - History of Wernicke encephalopathy Renal/ Medical History: Denies: Hx Peritoneal Dialysis Musculoskeletal Medical History: Denies Hx Arthritis Psychiatric Medical History: Denies: Hx Depression Past Surgical History: Reports: Hx Appendectomy, Hx Orthopedic Surgery - L knee - Immunizations Hx Diphtheria, Pertussis, Tetanus Vaccination: Yes Review of Systems - Review of Systems Constitutional: No symptoms reported EENT: No symptoms reported Cardiovascular: No symptoms reported Respiratory: No symptoms reported Gastrointestinal: No symptoms reported Genitourinary: No symptoms reported Musculoskeletal: No symptoms reported Skin: No symptoms reported Neurological/Psychological: See HPI -: Yes All other systems reviewed and negative Physical Exam - Vital signs Vitals: Resp Pulse Ox 16 94 07/10/20 10:23 07/10/20 10:23 - Notes Notes: Vital signs reviewed, please refer to chart. Head is normocephalic, atraumatic. Pupils equal round, reactive to light. Neck is supple without meningismus. Heart is regular rate and rhythm. Lungs are clear to auscultation bilaterally. Abdomen is soft, nontender, normoactive bowel sounds throughout. Extremities without cyanosis, clubbing. Posterior calves are nontender. Peripheral pulses are equal. Skin is warm and dry. Patient is awake, alert, oriented x3. He exhibits some very mild expressive aphasia, but cranial nerves II - XII are grossly intact without focal neurological deficits. Strength is plus 5 out of 5 bilateral upper and lower extremities. Sensation is intact. Reflexes symmetrical. Intact [id number], rapid alternating movements, [id number]. Course - Re-evaluation Re-evalutation: 07/10/20 12:43 Patient presents emergency department for evaluation. Laboratory investigations are ordered and the patient is found to be acidotic. I suspect this is from prolonged seizure activity. IV fluids ordered. Patient is currently stable. Awaiting urinalysis. 07/10/20 15:07 Patient was kept here in the emergency department for IV fluids. His labs were unremarkable with exception of a very low bicarb. Repeat bicarb was normalized. The patient feels stable. His blood pressure was elevated, I do suspect this is just situational. He states his blood pressures have been normal at home, that he will follow-up with his primary care provider in regards to this issue. He is to return to the emergency department worsening or new concerning symptoms of any sort. - Vital Signs Vital signs: Temp Pulse Resp BP Pulse Ox 98.9 F 22 H 173/87 H 98 07/10/20 10:24 07/10/20 13:01 07/10/20 13:00 07/10/20 13:01 - Laboratory Result Diagrams: 07/10/20 09:50 07/10/20 13:59 Laboratory results interpreted by me: 07/10/20 07/10/20 07/10/20 09:50 09:50 12:41 WBC 11.2 H Hct 51.9 H MCV 98 H Sodium Carbon Dioxide 9 L* Anion Gap 33 H Glucose 112 H Calcium 10.9 H Alkaline Phosphatase 149 H Total Protein 9.3 H Albumin 5.5 H Urine Protein 100 H Urine Blood SMALL H 07/10/20 13:59 WBC Hct MCV Sodium 136.6 L Carbon Dioxide Anion Gap Glucose Calcium Alkaline Phosphatase Total Protein Albumin Urine Protein Urine Blood Discharge - Discharge Clinical Impression: Seizure, Seizure disorder, Metabolic acidosis Condition: Stable Disposition: HOME, SELF-CARE Instructions: Seizure, Known Epileptic ([facility]) Additional Instructions: Please continue your regular medications at home as prescribed. Keep an eye on your blood pressure, follow-up with your primary care provider in regards to this issue. Return to the emergency department with worsening or new concerning symptoms of any sort. Referrals: ACE YU PA-C [Primary Care Provider] - Follow up as needed
[2020-07-10 13:30] LABS: URINE AMPHETAMINES SCREEN NEGATIVE; URINE BARBITURATES SCREEN NEGATIVE; URINE BENZODIAZEPINES SCREEN NEGATIVE; URINE COCAINE SCREEN NEGATIVE; URINE METHADONE SCREEN NEGATIVE; URINE PHENCYCLIDINE SCREEN NEGATIVE
[2020-07-10 13:32] LABS: URINE MARIJUANA (THC) SCREEN UNCONFIRMED POSITIVE
[2020-07-10 14:50] LABS: BLOOD UREA NITROGEN 13 mg/dL (7-20); CALCIUM 8.5 mg/dL (8.4-10.2); CHLORIDE 104 mmol/L (98-107); GLUCOSE 82 mg/dL (75-110); POTASSIUM 3.9 mmol/L (3.6-5.0)
[2020-07-10 14:59] LABS: ANION GAP 7 (5-19)
[2020-07-10 15:02] LABS: CARBON DIOXIDE 26 mmol/L (22-30)
[2020-07-10 15:25] VITALS: BP 197/96
== END 2020-07-10 15:25 | disposition home or self-care (01) ==
LOC: ER 10:21
DX: G40.909 Epilepsy, unspecified, not intractable, without status epilepticus (principal); E87.2 Acidosis; Z79.899 Other long term (current) drug therapy; Z79.82 Long term (current) use of aspirin; I10 Essential (primary) hypertension
CPT/HCPCS: 99284; 96360; 96361; 36415; 80307 ×2; 83735; 85025; 80053; 81001; J7030